=== PATIENT | male | born 2000 | race Caucasian/White ===

== ENCOUNTER 2024-03-20 02:09 | Emergency (ER) | payer BC, SELFPAY ==
[2024-03-20 02:10] VITALS: BP 156/83; PULSE 85; RESP 18; TEMP 36.9; O2SAT 98; BMI 22.6
[2024-03-20 03:19] LABS: Bacteria 0 SEEN /hpf (None Seen); Mucous, Urine 0 SEEN /hpf (<or=2+); Red Blood Cells-Urine 0 SEEN /hpf (0-5); Squamous Epithelial Cells - UA 0 SEEN /hpf (0-5); White Blood Cells 0 SEEN /hpf (0-5)
[2024-03-20 03:20] LABS: Absolute Lymphocyte Count 1.94 X10^3/uL (0.83-4.51); Absolute Neutrophil Count 5.1 X10^3/uL (2.0-7.7); Basophil# 0.06 X10^3/uL; Basophil% 0.7 % (0-1); Eosinophil# 0.22 X10^3/uL; Eosinophils% 2.7 % (0-5); Hemoglobin 14.7 g/dL (13.0-16.5); Lymphocyte # 1.94 X10^3/ul (0.83-4.51); Lymphocyte % 24.2 % (19-41); Mean Corp Hgb Conc 33.4 g/dL (32-36); Mean Corpuscular Hgb 29.3 pg (27.0-32.0); Mean Corpuscular Volume 87.8 fL (80-94); Mean Platelet Vol. 10.2 fl (6.2-12.0); Monocyte# 0.64 X10^3/uL; NRBC Flagged by Analyzer 0 % (0-5); Neutrophil % 63.5 % (47-70); Platelet Count 243 K/mm3 (150-450); RBC Distribution Width SD 41.8 fl (35.1-43.9); Red Blood Count 5.01 M/mm3 (4.6-6.2)
--- OUTSIDE RECORDS SUMMARY | 2024-03-20 03:20 | XMS RPT_ITS | CCD ---
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 congestion. No one else ill. Mid abdominal stomach upset. Not severe pain. No bloody stools. Also mentions he is cold all the time No previous anemia. No weight gain or changes in hair or skin. Has a sickle trait. He is keeping fluid down. Past medical history, appointments, medications, allergies reviewed. Previous Medical History PAST MEDICAL HISTORY Diagnosis Date Asthma, exercise induced 02/05/2015 resolved NEGATIVE HISTORY OF 02/13/10 normal color vision Previous Surgical History PAST SURGICAL HISTORY Procedure Laterality Date CIRCUMCISION Family History FAMILY HISTORY Problem Relation Age of Onset None Mother Asthma Father Heart Maternal Grandfather Stints Cervical Cancer Other maternal great grandmother Patient Allergies ALLERGIES Allergen Reactions Amoxacillin [Amoxic* Rash Developed skin rash while on amoxicillin in 2008. Penicillin skin tests were positive 02/23/12. Penicillin G Rash Penicillin skin tests positive 02/23/2012 Beta Blockers [Beta* Contraindication-[facility] Avoid use of beta blockers as patient is on allergy immunotherapy Cats Itching WATERY EYES Seasonal Allergies Itching Cats Horses Dust mites molds (July through March) trees (July, August and September) grasses (September and October) weeds (December, January and February) ragweed (December, January and February) Current Medications Current Outpatient Medications on File Prior to Visit Medication Sig polyethylene glycol 3350 (MIRALAX) 17 gram/dose powder Take by mouth as needed for constipation. Dissolve dose in 4 - 8 ounces of liquid and take as directed. No current facility-administered medications on file prior to visit. Social History Social History Tobacco Use Smoking status: Never Smokeless tobacco: Never Vaping Use Vaping Use: Never used Substance Use Topics Alcohol use: No Drug use: Never Review of Symptoms REVIEW OF SYSTEMS As above. EXAM: BP 122/79 (BP Site: Left Arm, BP Position: Sitting, BP Cuff Size: Regular Adult) Pulse 64 Temp 36.8 ?C (98.3 ?F) (Tympanic) Resp 18 Wt 78.5 kg (173 lb) BMI 22.44 kg/m? General Appearance: Well appearing, alert, in no acute distress, well-hydrated, well nourished.. Skin: Skin color, texture, turgor normal, no suspicious rashes or lesions. Head: Normocephalic, no masses, lesions, tenderness or abnormalities. Eyes: Anicteric sclera. Pupils are equally round and reactive to light. Extraocular movements are intact. . Ears: External ears normal, canals clear. Nose/Sinuses: Nares normal, septum midline, mucosa normal, no drainage or sinus tenderness. Oropharynx: Lips, mucosa, and tongue normal, teeth and gums normal, oropharynx normal. Neck: Negative findings: no adenopathy. Lungs: Lungs clear to auscultation. No wheezing, rhonchi, rales.. Heart: RRR without murmur, gallop, or rubs. No ectopy. Abdomen: Normal abdominal exam, Abdomen soft, non-tender. Bowel sounds normal. No masses, organo ASSESSMENT/PLAN: 1. Pharyngitis, unspecified etiology - ICD9: 462, ICD10: J02.9 (primary diagnosis) - Rapid Strep negative in the office today - The patient should follow up in one week if symptoms persist or worsen - Call back if drooling, increased temperature, symptoms of dehydration and/or still sick in one week - STREP A MOLECULAR (POC) 2. Gastroenteritis - ICD9: 558.9, ICD10: K52.9 - light diet. Push fluids. Call if worsens. Consider stool studies if continues. 3. Cold intolerance - ICD9: 780.99, ICD10: R68.89 - check labs in a few weeks when feeling better. - CBC + DIFF - TSH BLD - BASIC METABOLIC PNL Janell Bassett MD Medical Decision Making: Problems: Moderate: New problem with uncertain prognosis Data: Unique test(s) ordered: 3+ Medical Decision Making Level: 4 - Moderate Referring Provider: SELF [[id number]] Allergies As of Date: 08/26/2023 Noted Allergy Reaction AMOXACILLIN (AMOXICILLIN) 03/16/2009 2 - Rash Comments: Developed skin rash while on am (more content not included)... Normal [facility] STREP A MOLECULAR (POC)on Procedural Control Valid [facility] Strep A (POCT) Negative Negative [facility] Vital Signs Date Time Vital Sign Value Performing Clinician Faci lity 01-12-2024 13:41-0400 Body mass index (BMI) [Ratio] 21.92 kg/m2 Ashley Jacobson APRN.ZAID Work Phone: [facility] 01-12-2024 13:41-0400 Body weight 76.66 kg Ashley Jacobson APRN.HAND PATTERN MARKER Work Phone: [facility] 01-12-2024 13:41-0400 Diastolic blood pressure 82 mm[Hg] Ashley Jacobson APRN.HAND PATTERN MARKER Work Phone: [facility] 01-12-2024 13:41-0400 Heart rate 69 /min Ashley Jacobson APRN.HAND PATTERN MARKER Work Phone: [facility] 01-12-2024 13:41-0400 Respiratory rate 16 /min Ashley Jacobson APRN.HAND PATTERN MARKER Work Phone: [facility] 01-12-2024 13:41-0400 SaO2% (BldA) [Mass fraction] 98 % Ashley Jacobson APRN.HAND PATTERN MARKER Work Phone: [facility] 01-12-2024 13:41-0400 Systolic blood pressure 126 mm[Hg] Ashley Jacobson APRN.HAND PATTERN MARKER Work Phone: [facility] 08-26-2023 13:28-0400 Body temperature 98.29 [degF] Janell Bassett MD Work Phone: [facility] 08-26-2023 13:28-0400 Body weight 78.47 kg Janell Bassett MD Work Phone: [facility] 08-26-2023 13:28-0400 Diastolic blood pressure 79 mm[Hg] Janell Bassett MD Work Phone: [facility] 08-26-2023 13:28-0400 Heart rate 64 /min Janell Bassett MD Work Phone: [facility] 08-26-2023 13:28-0400 Respiratory rate 18 /min Janell Bassett MD Work Phone: [facility] 08-26-2023 13:28-0400 Systolic blood pressure 122 mm[Hg] Janell Bassett MD Work Phone: [facility] 03-21-2022 17:46-0400 Body temperature 101.1 [degF] Rhett Paul TELEGRAPH INSPECTOR.HAND PATTERN MARKER Work Phone: [facility] 03-21-2022 17:46-0400 Body weight 80.65 kg Rhettkristine Miller TELEGRAPH INSPECTOR.HAND PATTERN MARKER Work Phone: [facility] 03-21-2022 17:46-0400 Diastolic blood pressure 80 mm[Hg] Rhett Pendlebury TELEGRAPH INSPECTOR.HAND PATTERN MARKER Work Phone: [facility] 03-21-2022 17:46-0400 Heart rate 109 /min Rhett Penddamion TELEGRAPH INSPECTOR.HAND PATTERN MARKER Work Phone: [facility] 03-21-2022 17:46-0400 Respiratory rate 16 /min Rhett Pendleraquel TELEGRAPH INSPECTOR.HAND PATTERN MARKER Work Phone: [facility] 03-21-2022 17:46-0400 SaO2% (BldA) [Mass fraction] 96 % Rhett Pendleraquel TELEGRAPH INSPECTOR.HAND PATTERN MARKER Work Phone: [facility] 03-21-2022 17:46-0400 Systolic blood pressure 138 mm[Hg] Rhett Pendleraquel TELEGRAPH INSPECTOR.HAND PATTERN MARKER Work Phone: [facility] 03-17-2022 10:46-0400 Body temperature 98.1 [degF] Keli Pino PA-C Work Phone: [facility] 03-17-2022 10:46-0400 Body weight 80.79 kg Keli Pino PA-C Work Phone: [facility] 03-17-2022 10:46-0400 Heart rate 76 /min Keli Pino PA-C Work Phone: [facility] 03-17-2022 10:46-0400 Respiratory rate 16 /min Keli Pino PA-C Work Phone: [facility] 12-20-2021 19:36-0400 Body temperature 97.11 [degF] Ros García TELEGRAPH INSPECTOR.HAND PATTERN MARKER Work Phone: [facility] 12-20-2021 19:36-0400 Body weight 80.2 kg Ros García TELEGRAPH INSPECTOR.HAND PATTERN MARKER Work Phone: [facility] 12-20-2021 19:36-0400 Diastolic blood pressure 86 mm[Hg] Ros García TELEGRAPH INSPECTOR.HAND PATTERN MARKER Work Phone: [facility] 12-20-2021 19:36-0400 Heart rate 72 /min Ros García TELEGRAPH INSPECTOR.HAND PATTERN MARKER Work Phone: [facility] 12-20-2021 19:36-0400 Respiratory rate 20 /min Ros García TELEGRAPH INSPECTOR.HAND PATTERN MARKER Work Phone: [facility] 12-20-2021 19:36-0400 SaO2% (BldA) [Mass fraction] 98 % Ros García TELEGRAPH INSPECTOR.HAND PATTERN MARKER Work Phone: [facility] 12-20-2021 19:36-0400 Systolic blood pressure 130 mm[Hg] Ros García TELEGRAPH INSPECTOR.HAND PATTERN MARKER Work Phone: [facility] Encounters Encounter Date Encounter Type Care Provider Facility Start: 03-05-2024 End: 03-05-2024 ambulatory JANELL BASSETT Facility:[facility] Start: 03-05-2024 End: 03-05-2024 Patient encounter procedure Immunization Clinic Nurse Nusrat Work Phone: [facility] Start: 01-12-2024 End: 01-12-2024 Office outpatient visit 15 minutes Ashley Jacobson APRN.HAND PATTERN MARKER Work Phone: [facility] Comment on above: Eczema, unspecified type (Primary Dx); Encounter for immunization Start: 01-12-2024 End: 01-12-2024 ambulatory ASHLEYSugey JACOBSON Facility:[facility] Start: 09-24-2023 End: 09-24-2023 ambulatory JANELL Isma JUICE Facility:[facility] Start: 08-26-2023 End: 08-26-2023 ambulatory [facility] Facility:[facility] Start: 08-26-2023 End: 08-26-2023 Patient encounter procedure Janell Bassett MD Work Phone: [facility] [place] Comment on above: Pharyngitis, unspeci fied etiology (Primary Dx); Gastroenteritis; Cold intolerance Start: 03-07-2023 End: 03-07-2023 ambulatory Immunization Clinic Nurse Nusrat Work Phone: [facility] Start: 08-01-2022 End: 08-01-2022 Nursing evaluation of patient and report Mi Nurse Work Phone: [facility] Comment on above: Need for vaccination (Primary Dx) Start: 05-30-2022 ambulatory [facility] Provider Pacheco Cerda Comment on above: Establish with [facility] physician. Start: 05-30-2022 E-mail encounter fro m caregiver [facility] Provider ODESSA CASANOVA Start: 05-22-2022 ambulatory Rodrigo herbert MD Work Phone: [facility] Comment on above: Adult Dr Start: 05-22-2022 Physical examination Rodrigo Rollins MD Work Phone: [facility] [place] Start: 03-22-2022 Telephone encounter Melba David APRN.HAND PATTERN MARKER Work Phone: [facility] Comment on above: Results Start: 03-21-2022 End: 03-21-2022 Patient encounter procedure Rhett Miller TELEGRAPH INSPECTOR.HAND PATTERN MARKER Work Phone: [facility] Comment on above: Suspected COVID-19 v irus infection (Primary Dx) Start: 03-17-2022 End: 03-17-2022 Patient encounter procedure Keli Pino PA-C Work Phone: [facility] Comment on above: Viral gastroenteriti s (Primary Dx) Start: 12-20-2021 End: 12-20-2021 Patient encounter procedure Ros García TELEGRAPH INSPECTOR.HAND PATTERN MARKER Work Phone: [facility] Comment on above: Muscle strain of lef t upper back, initial encounter (Primary Dx) Procedures Date Procedure Procedure Detail Performing Clinician Start: 03-05-2024 PFIZER-BIONTECH COVI D-19 VACCINE AGE 12+ YR (COMIRNATY) Windy Fall MD Work Phone: Start: 08-26-2023 STREP A MOLECULAR (POC) Janell Bassett MD Work Phone: Start: 03-07-2023 INFLUENZA VACCINE, A GE 6 MO - 64 YR, QUADRIVALENT (AFLURIA, FLULAVAL, FLUZONE) Adonis Wright MD Work Phone: Start: 08-01-2022 PFIZER-BIONTECH COVI D-19 BIVALENT BOOSTER VACCINE, AGE 12+ YR M Vaughn Christianson PA-C Work Phone: Start: 03-12-2020 Adult depression scr eening assessment Ros García APRN.HAND PATTERN MARKER Work Phone: Plan of Treatment Date Care Activity Detail Author Start: 01-11-2034 Urine microalbumin profile DTaP,Tdap,Td Vaccine (8 - Td or Tdap) [facility] Start: 01-11-2025 Anxiety Screening Anxiety Screening [facility] Comment on above: Postponed from 02/13 (Declined at this time) Start: 02-01-2024 Urine microalbumin profile [facility] Start: 01-24-2024 Influenza vaccination Influenza Vacc ine (#1) [facility] Start: 01-12-2024 Depression Screening Depression Scre ening [facility] Comment on above: Postponed from 02/13 (Declined at this time) Start: 08-26-2023 End: 11-25-2023 Basic metabolic 2000 panel - Serum or Plasma BASIC METABOLIC PNL Lab Routine Cold intolerance Expected: 08/26/2023, Expires: 11/25/2023 [facility] Work Phone: Comment on above: Expected: 08/26/2023 , Expires: 11/25/2023 Start: 08-26-2023 End: 11-25-2023 CBC W Auto Differential panel - Blood CBC + DIFF Lab Routine Cold intolerance Expected: 08/26/2023, Expires: 11/25/2023 [facility] Work Phone: Comment on above: Expected: 08/26/2023 , Expires: 11/25/2023 Start: 08-26-2023 End: 11-25-2023 Thyrotropin [Units/volume] in Serum or Plasma TSH BLD Lab Routine Cold intolerance Expected: 08/26/2023, Expires: 11/25/2023 [facility] Work Phone: Comment on above: Expected: 08/26/2023 , Expires: 11/25/2023 Start: 05-25-2023 Behavioral Health Screening Behavioral Health Screening [facility] Start: 01-23-2023 Covid-19 Vaccine () Covid-19 Vaccine () [facility] Start: 05-25-2022 DEPRESSION ASSESSMENT DEPRESSION ASS ESSMENT [facility] Start: 03-21-2022 End: 04-04-2022 SARS-CoV-2 (COVID-19) RNA [Presence] in Respiratory specimen by SOHAN with probe detection 2019 CORONAVIRUS Microbiology Routine Suspected COVID-19 virus infection Expected: 03/21/2022, Expires: 04/04/2022 [facility] Work Phone: Comment on above: Expected: 03/21/2022 , Expires: 04/04/2022 Start: 01-23-2022 Influenza vaccination INFLUENZA (#1) [facility] Start: 07-27-2021 COVID-19 VACCINE (4 - Booster for Moderna series) COVID-19 VACCINE (4 - Booster for Moderna series) [facility] Start: 05-25-2021 DEPRESSION ASSESSMENT DEPRESSION ASS ESSMENT [facility] Start: 03-12-2021 Adult depression screening assessment DEPRESSION SCREENING [facility] Start: 02-14-2020 Depression Screening Depression Scre ening [facility] Start: 02-14-2020 HEPATITIS C SCREENING HEPATITIS C [facility] Start: 02-14-2020 Hepatitis C screening Hepatitis C [facility] Start: 02-14-2020 HIV SCREENING HIV SCREENING [facility] Start: 02-14-2020 HIV screening HIV Screening [facility] Start: 2018 Meningococcal B Vacc ine: Consider Based On Risk (1 of 2 - Patient Seeks Protection) Meningococcal B Vaccine: Consider Based On Risk (1 of 2 - Patient Seeks Protection) [facility] Start: 02-14-2016 PEDS TO ADULT TRANSI TION ANNUAL ASSESSMENT PEDS TO ADULT TRANSITION ANNUAL ASSESSMENT [facility] Start: 2014 PEDS TO ADULT TRANSI TION INITIAL DISCUSSION PEDS TO ADULT TRANSITION INITIAL DISCUSSION [facility] Start: 02-14-2012 MENINGOCOCCAL B: Consider based on risk (1 of 2 - Risk Bexsero 2-dose series) MENINGOCOCCAL B: Consider based on risk (1 of 2 - Risk Bexsero 2-dose series) [facility] Immunizations Immunization Date Immunization Notes Care Provider Adela villafuerte 03-05-2024 COVID-19 vaccine, ag e 12+ yr (PFIZER-BIONTECH [facility]) Immunization Nusrat Work Phone: [facility] 03-05-2024 influenza, seasonal, injectable Immunization Nusrat Work Phone: [facility] 01-12-2024 tetanus toxoid, redu edwina diphtheria toxoid, and acellular pertussis vaccine, adsorbed Ashley Jacobson TELEGRAPH INSPECTOR.HAND PATTERN MARKER Work Phone: [facility] 03-07-2023 influenza, injectabl e, quadrivalent, contains preservative Immunization N[facility] Work Phone: [facility] 03-07-2023 influenza virus vaccine, unspecified formulation Ashley Jacobson APRN.HAND PATTERN MARKER Work Phone: [facility] 08-01-2022 COVID-19 booster vaccine, age 12+ yr, bivalent (PFIZER-BIONTMiCursada) [facility] Work Phone: [facility] Work Phone: 02-22-2022 influenza, injectabl e, quadrivalent, contains preservative Keli Pino PA-C Work Phone: [facility] 02-23-2021 influenza, injectabl e, quadrivalent, contains preservative Ros García TELEGRAPH INSPECTOR.HAND PATTERN MARKER Work Phone: [facility] Work Phone: 03-12-2020 influenza, injectabl e, quadrivalent, contains preservative Ros García TELEGRAPH INSPECTOR.HAND PATTERN MARKER Work Phone: [facility] 03-11-2019 influenza, injectabl e, quadrivalent, preservative free Ros García TELEGRAPH INSPECTOR.HAND PATTERN MARKER Work Phone: [facility] 02-16-2018 influenza, injectabl e, quadrivalent, contains preservative Ros García TELEGRAPH INSPECTOR.[facility] Work Phone: [facility] 02-16-2018 meningococcal B, unspecified formulation Immunization Nusrat Work Phone: [facility] Work Phone: 02-16-2018 meningococcal polysaccharide (groups A, C, Y and W-135) diphtheria toxoid conjugate vaccine (MCV4P) Ros García TELEGRAPH INSPECTOR.HAND PATTERN MARKER Work Phone: [facility] 02-25-2017 influenza, injectabl e, quadrivalent, preservative free Ros García TELEGRAPH INSPECTOR.HAND PATTERN MARKER Work Phone: [facility] Work Phone: 02-25-2016 influenza, injectabl e, quadrivalent, preservative free Ros García TELEGRAPH INSPECTOR.HAND PATTERN MARKER Work Phone: [facility] Work Phone: 02-24-2015 influenza, injectabl e, quadrivalent, preservative free Ros García TELEGRAPH INSPECTOR.HAND PATTERN MARKER Work Phone: [facility] 08-03-2014 human papilloma viru s vaccine, quadrivalent Ros García TELEGRAPH INSPECTOR.HAND PATTERN MARKER Work Phone: [facility] 03-31-2014 human papilloma viru s vaccine, quadrivalent Ros García TELEGRAPH INSPECTOR.[facility] Work Phone: [facility] Work Phone: 03-02-2014 influenza, injectabl e, quadrivalent, preservative free Ros García TELEGRAPH INSPECTOR.[facility] Work Phone: [facility] Work Phone: 01-31-2014 human papilloma viru s vaccine, quadrivalent Ros García TELEGRAPH INSPECTOR.[facility] Work Phone: [facility] 01-31-2014 meningococcal B, unspecified formulation Immunization Nusrat Work Phone: [facility] Work Phone: 01-31-2014 meningococcal polysaccharide (groups A, C, Y and W-135) diphtheria toxoid conjugate vaccine (MCV4P) Ros García TELEGRAPH INSPECTOR.[facility] Work Phone: [facility] 01-31-2014 tetanus toxoid, redu edwina diphtheria toxoid, and acellular pertussis vaccine, adsorbed Ros García TELEGRAPH INSPECTOR.[facility] Work Phone: [facility] 03-05-2013 influenza virus vaccine, live, attenuated, for intranasal use Ros García TELEGRAPH INSPECTOR.HAND PATTERN MARKER Work Phone: [facility] Work Phone: 02-21-2012 influenza virus vaccine, live, attenuated, for intranasal use Ros García TELEGRAPH INSPECTOR.[facility] Work Phone: [facility] Work Phone: 02-25-2011 influenza virus vaccine, live, attenuated, for intranasal use Ros García TELEGRAPH INSPECTOR.[facility] Work Phone: [facility] 2010 influenza virus vaccine, live, attenuated, for intranasal use Ros García TELEGRAPH INSPECTOR.[facility] Work Phone: [facility] 02-17-2009 influenza virus vaccine, live, attenuated, for intranasal use Ros García TELEGRAPH INSPECTOR.[facility] Work Phone: [facility] Work Phone: 03-04-2008 influenza virus vaccine, live, attenuated, for intranasal use Ros García TELEGRAPH INSPECTOR.[facility] [facility] Work Phone: [facility] Work Phone: 12-29-2007 hepatitis A vaccine, unspecified formulation Ros García TELEGRAPH INSPECTOR.[facility] Work Phone: [facility] Work Phone: 12-29-2007 varicella virus vaccine Mechelle ica García TELEGRAPH INSPECTOR.[facility] Work Phone: [facility] Work Phone: 04-07-2007 influenza virus vaccine, live, attenuated, for intranasal use Ros García TELEGRAPH INSPECTOR.[facility] Work Phone: [facility] Work Phone: 02-15-2007 diphtheria, tetanus toxoids and acellular pertussis vaccine Ros García TELEGRAPH INSPECTOR.[facility] Work Phone: [facility] Work Phone: 02-15-2007 hepatitis A vaccine, unspecified formulation Ros García TELEGRAPH INSPECTOR.[facility] Work Phone: [facility] Work Phone: 02-15-2007 measles, mumps and rubella virus vaccine Ros García TELEGRAPH INSPECTOR.[facility] Work Phone: [facility] Work Phone: 02-15-2007 poliovirus vaccine, inactivated Ros García TELEGRAPH INSPECTOR.[facility] Work Phone: [facility] Work Phone: 03-30-2006 influenza virus vaccine, unspecified formulation Ros García TELEGRAPH INSPECTOR.[facility] Work Phone: [facility] Work Phone: 03-13-2005 influenza virus vaccine, unspecified formulation Ros García TELEGRAPH INSPECTOR.[facility] Work Phone: [facility] Work Phone: 04-23-2004 influenza virus vaccine, unspecified formulation Ros García TELEGRAPH INSPECTOR.[facility] Work Phone: [facility] Work Phone: 05-12-2003 diphtheria, tetanus toxoids and acellular pertussis vaccine Ros García TELEGRAPH INSPECTOR.[facility] Work Phone: [facility] Work Phone: 05-12-2003 haemophilus influenz ae type b vaccine, HbOC conjugate Ros García TELEGRAPH INSPECTOR.[facility] Work Phone: [facility] Work Phone: 05-12-2003 pneumococcal conjuga te vaccine, 7 valent Ros García TELEGRAPH INSPECTOR.[facility] Work Phone: [facility] Work Phone: 05-04-2003 influenza virus vaccine, unspecified formulation Ros García TELEGRAPH INSPECTOR.[facility] Work Phone: [facility] Work Phone: 02-17-2003 hepatitis B vaccine, pediatric or pediatric/adolescent dosage Ros García TELEGRAPH INSPECTOR.[facility] Work Phone: [facility] Work Phone: 02-17-2003 measles, mumps and rubella virus vaccine Ros García TELEGRAPH INSPECTOR.[facility] Work Phone: [facility] Work Phone: 02-17-2003 varicella virus vaccine Mechelle ica García TELEGRAPH INSPECTOR.[facility] Work Phone: [facility] Work Phone: 2002 diphtheria, tetanus toxoids and acellular pertussis vaccine Ros García TELEGRAPH INSPECTOR.[facility] Work Phone: [facility] Work Phone: 2002 haemophilus influenz ae type b vaccine, HbOC conjugate Ros García TELEGRAPH INSPECTOR.HAND PATTERN MARKER Work Phone: [facility] Work Phone: 2002 pneumococcal conjuga te vaccine, 7 valent Ros García TELEGRAPH INSPECTOR.[facility] Work Phone: [facility] Work Phone: 2002 poliovirus vaccine, inactivated Ros García TELEGRAPH INSPECTOR.[facility] Work Phone: [facility] Work Phone: 2002 diphtheria, tetanus toxoids and acellular pertussis vaccine Ros García TELEGRAPH INSPECTOR.[facility] Work Phone: [facility] Work Phone: 2002 haemophilus influenz ae type b vaccine, HbOC conjugate Ros García TELEGRAPH INSPECTOR.[facility] Work Phone: [facility] Work Phone: 2002 pneumococcal conjuga te vaccine, 7 valent Ros García TELEGRAPH INSPECTOR.[facility] Work Phone: [facility] Work Phone: 2002 poliovirus vaccine, inactivated Ros García TELEGRAPH INSPECTOR.[facility] Work Phone: [facility] Work Phone: 2002 diphtheria, tetanus toxoids and acellular pertussis vaccine Ros García TELEGRAPH INSPECTOR.[facility] Work Phone: [facility] Work Phone: 2002 haemophilus influenz ae type b vaccine, HbOC conjugate Ros García TELEGRAPH INSPECTOR.[facility] Work Phone: [facility] Work Phone: 2002 pneumococcal conjuga te vaccine, 7 valent Ros García TELEGRAPH INSPECTOR.[facility] Work Phone: [facility] Work Phone: 2002 poliovirus vaccine, inactivated Ros García TELEGRAPH INSPECTOR.[facility] Work Phone: [facility] Work Phone: 2002 hepatitis B vaccine, pediatric or pediatric/adolescent dosage Ros García TELEGRAPH INSPECTOR.HAND PATTERN MARKER Work Phone: [facility] Work Phone: 2002 hepatitis B vaccine, pediatric or pediatric/adolescent dosage Ros García TELEGRAPH INSPECTOR.HAND PATTERN MARKER Work Phone: [facility] Work Phone: Payers Date Payer Category Payer Unknown [id number] 2018 Unknown MMO MMO [employer] [id number] 2018-Present [phone] [address] [place] [address] [facility] [id number] 2018 Unknown [id number] Social History Date Type Detail Facility Start: 03-17-2022 Tobacco smoking status AZIS Never smoked tobacco [facility] Start: 12-20-2021 End: 01-12-2024 Alcohol intake Current non-drinker of alcohol (finding) [facility] Start: 2002 Sex Assigned At Male [facility] Start: 03-17-2022 Tobacco use and exposure Smokeless tobacco non-user [facility] Work Phone: Start: 03-07-2022 End: 03-21-2022 Exposure to SARS-CoV-2 (event) Not sure [facility] Work Phone: Start: 08-04-2022 End: 02-20-2023 History of Social function [facility] Start: 08-04-2022 End: 02-20-2023 Social connection and isolation [facility] Do you belong to any clubs or organizations such as rastafarian groups, unions, fraternal or athletic groups, or school groups? No [facility] Attends Club or Organization Meetings Not on file [facility] Are you now , , , , never or living with a partner? Never [facility] How often to you hav e a drink containing alcohol? Never [facility] (I/We) worried wheth er (my/our) food would run out before (I/we) got money to buy more. Never true [facility] Start: 01-18-2019 Gender identity Identifies as male gender (finding) [facility] Start: 01-18-2019 Sexual orientation Heterosexual (finding) [facility] Clinical Notes 04-21-2017 to 01-12-2024 Patient InstructionsAshley Jacobson APRN.CNP - 01/12/2024 1:50 PM Janell Blanchard MD - 08/26/2023 1:27 PM EDHernan Kaba LPN - 08/01/2022 12:40 PM ESTPatient InstructionsPatient Instructions Note Date & Type Note Facility 01-12-2024 Instructions Ashley Jacobson APRN.CNP - 01/12/2024 2:11 PM EDT Try the steroid on the wrist area. If you need us to send in a new script for the steroid ointment, let us know. Let us know if you decide you want the meningococcal B vaccine. (You had the required dosing). Let us know if you want the HIV/hep C screenings. documented in this encounter [facility] 01-12-2024 Note HNO ID: [id number] Author: ASHLEY JACOBSON APRN.ZAID Service: ? Author Type: Nurse Practitioner Type: Progress Notes Filed: 01/12/2024 17:32 Note Text: This is a 23 year old male who presents today with: Patient presents with: Follow Up HISTORY OF PRESENT ILLNESS: Jd Obregon is a 23 year old male. Patient presents with: Follow Up Pt presents today for health maintenance. Due for tdap. He also has some irritated skin on the palmar aspect of the right wrist. Thinks from some oil at work. Hx of eczema. Has a steroid cream at home. PAST MEDICAL HISTORY: PAST MEDICAL HISTORY 02/05/2015: Asthma, exercise induced Comment: resolved 02/13/10: NEGATIVE HISTORY OF Comment: normal color vision PAST SURGICAL HISTORY No date: CIRCUMCISION ALLERGIES Amoxacillin [Amoxicillin], Penicillin G, Beta Blockers [Beta-Blockers (Beta-Adrenergic Blocking Agts)], Cats, and Seasonal Allergies MEDICATIONS Current Outpatient Medications Medication Sig polyethylene glycol 3350 (MIRALAX) 17 gram/dose powder Take by mouth as needed for constipation. Dissolve dose in 4 - 8 ounces of liquid and take as directed. No current facility-administered medications for this visit. FAMILY HISTORY Problem Relation Age of Onset None Mother Asthma Father Heart Maternal Grandfather Stints Cervical Cancer Other maternal great grandmother Social History Tobacco Use Smoking status: Never Smokeless tobacco: Never Vaping Use Vaping status: Never Used Substance Use Topics Alcohol use: No Drug use: Never EXAM: BP 126/82 Pulse 69 Resp 16 Wt 76.7 kg (169 lb) SpO2 98% BMI 21.92 kg/m? PHYSICAL EXAM: General Appearance: Well appearing, alert, in no acute distress, well-hydrated, well nourished.. Skin: Skin color, texture, turgor normal, dry,scaly patch of skin on the palmar aspect of the right wrist. Head: Normocephalic, no masses, lesions, tenderness or abnormalities. Eyes: Anicteric sclera. Extraocular movements are intact. . Neurologic: Gait normal. ASSESSMENT/PLAN: 1. Eczema, unspecified type - ICD9: 692.9, ICD10: L30.9 (primary diagnosis) - discussed skin care of rash - follow up if symptoms persist or worsen. - Declines script -- he thinks that he has a topical steroid at home. He is aware to call if he does not and we can send into the pharmacy. 2. Encounter for immunization - ICD9: V03.89, ICD10: Z23 - TDAP VACCINE, AGE 7+ YR (ADACEL, BOOSTRIX) Discussed other health maintenance (men B, hep c and hiv screening). He would like to ensure coverage prior to proceeding. Discussed treatment plan and patient voices understanding. Patient's questions answered appropriately. Medications and potential side effects were discussed and patient voices understanding. Return to the office as scheduled or as needed for worsening/no improvement. Ashley Jacobson APRN.[facility] 01-12-2024 History of Present illness Narrative This is a 23 year old male who presents today with: Patient presents with: Follow Up HISTORY OF PRESENT ILLNESS: Jd Obregon is a 23 year old male. Patient presents with: Follow Up Pt presents today for health maintenance. Due for tdap. He also has some irritated skin on the palmar aspect of the right wrist. Thinks from some oil at work. Hx of eczema. Has a steroid cream at home. PAST MEDICAL HISTORY: PAST MEDICAL HISTORY 02/05/2015: Asthma, exercise induced Comment: resolved 02/13/10: NEGATIVE HISTORY OF Comment: normal color vision PAST SURGICAL HISTORY No date: CIRCUMCISION ALLERGIES Amoxacillin [Amoxicillin], Penicillin G, Beta Blockers [Beta-Blockers (Beta-Adrenergic Blocking Agts)], Cats, and Seasonal Allergies MEDICATIONS Current Outpatient Medications Medication Sig polyethylene glycol 3350 (MIRALAX) 17 gram/dose powder Take by mouth as needed for constipation. Dissolve dose in 4 - 8 ounces of liquid and take as directed. No current facility-administered medications for this visit. FAMILY HISTORY Problem Relation Age of Onset None Mother Asthma Father Heart Maternal Grandfather Stints Cervical Cancer Other maternal great grandmother Social History Tobacco Use Smoking status: Never Smokeless tobacco: Never Vaping Use Vaping status: Never Used Substance Use Topics Alcohol use: No Drug use: Never EXAM: BP 126/82 Pulse 69 Resp 16 Wt 76.7 kg (169 lb) SpO2 98% BMI 21.92 kg/m PHYSICAL EXAM: General Appearance: Well appearing, alert, in no acute distress, well-hydrated, well nourished.. Skin: Skin color, texture, turgor normal, dry,scaly patch of skin on the palmar aspect of the right wrist. Head: Normocephalic, no masses, lesions, tenderness or abnormalities. Eyes: Anicteric sclera. Extraocular movements are intact. . Neurologic: Gait normal. ASSESSMENT/PLAN: 1. Eczema, unspecified type - ICD9: 692.9, ICD10: L30.9 (primary diagnosis) - discussed skin care of rash - follow up if symptoms persist or worsen. - Declines script -- he thinks that he has a topical steroid at home. He is aware to call if he does not and we can send into the pharmacy. 2. Encounter for immunization - ICD9: V03.89, ICD10: Z23 - TDAP VACCINE, AGE 7+ YR (ADACEL, BOOSTRIX) Discussed other health maintenance (men B, hep c and hiv screening). He would like to ensure coverage prior to proceeding. Discussed treatment plan and patient voices understanding. Patient's questions answered appropriately. Medications and potential side effects were discussed and patient voices understanding. Return to the office as scheduled or as needed for worsening/no improvement. Ashley Jacobson APRN.HAND PATTERN MARKER documented in this encounter [facility] 08-26-2023 Note HNO ID: [id number] Author: JANELL BASSETT MD Service: ? Author Type: Physician Type: Progress Notes Filed: 08/26/2023 16:55 Note Text: Chief Complaint Patient presents with: Pain, Abdominal HPI Jd Obregon is a 23 year old male who presents here today for patient was at family gathering on Thursday and woke up Thursday morning around 4 am with upset stomach. No fever; No vomiting; did have nausea the first day but that has gotten better. Gets loose stools whenever he eats. No fever. No issues urinating. Had mild headache last pm. Some sore throat. Was worse yesterday. No cough or congestion. No one else ill. Mid abdominal stomach upset. Not severe pain. No bloody stools. Also mentions he is cold all the time No previous anemia. No weight gain or changes in hair or skin. Has a sickle trait. He is keeping fluid down. Past medical history, appointments, medications, allergies reviewed. Previous Medical History PAST MEDICAL HISTORY Diagnosis Date Asthma, exercise induced 02/05/2015 resolved NEGATIVE HISTORY OF 02/13/10 normal color vision Previous Surgical History PAST SURGICAL HISTORY Procedure Laterality Date CIRCUMCISION Family History FAMILY HISTORY Problem Relation Age of Onset None Mother Asthma Father Heart Maternal Grandfather Stints Cervical Cancer Other maternal great grandmother Patient Allergies ALLERGIES Allergen Reactions Amoxacillin [Amoxic* Rash Developed skin rash while on amoxicillin in 2008. Penicillin skin tests were positive 02/23/12. Penicillin G Rash Penicillin skin tests positive 02/23/2012 Beta Blockers [Beta* Contraindication-Medical Surgical Avoid use of beta blockers as patient is on allergy immunotherapy Cats Itching WATERY EYES Seasonal Allergies Itching Cats Horses Dust mites molds (July through March) trees (July, August and September) grasses (September and October) weeds (December, January and February) ragweed (December, January and February) Current Medications Current Outpatient Medications on File Prior to Visit Medication Sig polyethylene glycol 3350 (MIRALAX) 17 gram/dose powder Take by mouth as needed for constipation. Dissolve dose in 4 - 8 ounces of liquid and take as directed. No current facility-administered medications on file prior to visit. Social History Social History Tobacco Use Smoking status: Never Smokeless tobacco: Never Vaping Use Vaping Use: Never used Substance Use Topics Alcohol use: No Drug use: Never Review of Symptoms REVIEW OF SYSTEMS As above. EXAM: BP 122/79 (BP Site: Left Arm, BP Position: Sitting, BP Cuff Size: Regular Adult) Pulse 64 Temp 36.8 ?C (98.3 ?F) (Tympanic) Resp 18 Wt 78.5 kg (173 lb) BMI 22.44 kg/m? General Appearance: Well appearing, alert, in no acute distress, well-hydrated, well nourished.. Skin: Skin color, texture, turgor normal, no suspicious rashes or lesions. Head: Normocephalic, no masses, lesions, tenderness or abnormalities. Eyes: Anicteric sclera. Pupils are equally round and reactive to light. Extraocular movements are intact. . Ears: External ears normal, canals clear. Nose/Sinuses: Nares normal, septum midline, mucosa normal, no drainage or sinus tenderness. Oropharynx: Lips, mucosa, and tongue normal, teeth and gums normal, oropharynx normal. Neck: Negative findings: no adenopathy. Lungs: Lungs clear to auscultation. No wheezing, rhonchi, rales.. Heart: RRR without murmur, gallop, or rubs. No ectopy. Abdomen: Normal abdominal exam, Abdomen soft, non-tender. Bowel sounds normal. No masses, organo ASSESSMENT/PLAN: 1. Pharyngitis, unspecified etiology - ICD9: 462, ICD10: J02.9 (primary diagnosis) - Rapid Strep negative in the office today - The patient should follow up in one week if symptoms persist or worsen - Call back if drooling, increased temperature, symptoms of dehydration and/or still sick in one week - STREP A MOLECULAR (POC) 2. Gastroenteritis - ICD9: 558.9, ICD10: K52.9 - light diet. Push fluids. Call if worsens. Consider stool studies if continues. 3. Cold intolerance - ICD9: 780.99, ICD10: R68.89 - check labs in a few weeks when feeling better. - CBC + DIFF - TSH BLD - BASIC METABOLIC PNL Janell Bassett MD Medical Decision Making: Problems: Moderate: New problem with uncertain prognosis Data: Unique test(s) ordered: 3+ Medical Decision Making Level: 4 - Moderate [facility] 08-26-2023 History of Present illness Narrative Chief Complaint Patient presents with: Pain, Abdominal HPI Jd Obregon is a 23 year old male who presents here today for patient was at family gathering on Thursday and woke up Thursday morning around 4 am with upset stomach. No fever; No vomiting; did have nausea the first day but that has gotten better. Gets loose stools whenever he eats. No fever. No issues urinating. Had mild headache last pm. Some sore throat. Was worse yesterday. No cough or congestion. No one else ill. Mid abdominal stomach upset. Not severe pain. No bloody stools. Also mentions he is cold all the time No previous anemia. No weight gain or changes in hair or skin. Has a sickle trait. He is keeping fluid down. Past medical history, appointments, medications, allergies reviewed. Previous Medical History PAST MEDICAL HISTORY Diagnosis Date Asthma, exercise induced 02/05/2015 resolved NEGATIVE HISTORY OF 02/13/10 normal color vision Previous Surgical History PAST SURGICAL HISTORY Procedure Laterality Date CIRCUMCISION Family History FAMILY HISTORY Problem Relation Age of Onset None Mother Asthma Father Heart Maternal Grandfather Stints Cervical Cancer Other maternal great grandmother Patient Allergies ALLERGIES Allergen Reactions Amoxacillin [Amoxic* Rash Developed skin rash while on amoxicillin in 2008. Penicillin skin tests were positive 02/23/12. Penicillin G Rash Penicillin skin tests positive 02/23/2012 Beta Blockers [Beta* Contraindication-Medical Surgical Avoid use of beta blockers as patient is on allergy immunotherapy Cats Itching WATERY EYES Seasonal Allergies Itching Cats Horses Dust mites molds (July through March) trees (July, August and September) grasses (September and October) weeds (December, January and February) ragweed (December, January and February) Current Medications Current Outpatient Medications on File Prior to Visit Medication Sig polyethylene glycol 3350 (MIRALAX) 17 gram/dose powder Take by mouth as needed for constipation. Dissolve dose in 4 - 8 ounces of liquid and take as directed. No current facility-administered medications on file prior to visit. Social History Social History Tobacco Use Smoking status: Never Smokeless tobacco: Never Vaping Use Vaping Use: Never used Substance Use Topics Alcohol use: No Drug use: Never Review of Symptoms REVIEW OF SYSTEMS As above. EXAM: BP 122/79 (BP Site: Left Arm, BP Position: Sitting, BP Cuff Size: Regular Adult) Pulse 64 Temp 36.8 C (98.3 F) (Tympanic) Resp 18 Wt 78.5 kg (173 lb) BMI 22.44 kg/m General Appearance: Well appearing, alert, in no acute distress, well-hydrated, well nourished.. Skin: Skin color, texture, turgor normal, no suspicious rashes or lesions. Head: Normocephalic, no masses, lesions, tenderness or abnormalities. Eyes: Anicteric sclera. Pupils are equally round and reactive to light. Extraocular movements are intact. . Ears: External ears normal, canals clear. Nose/Sinuses: Nares normal, septum midline, mucosa normal, no drainage or sinus tenderness. Oropharynx: Lips, mucosa, and tongue normal, teeth and gums normal, oropharynx normal. Neck: Negative findings: no adenopathy. Lungs: Lungs clear to auscultation. No wheezing, rhonchi, rales.. Heart: RRR without murmur, gallop, or rubs. No ectopy. Abdomen: Normal abdominal exam, Abdomen soft, non-tender. Bowel sounds normal. No masses, organo ASSESSMENT/PLAN: 1. Pharyngitis, unspecified etiology - ICD9: 462, ICD10: J02.9 (primary diagnosis) - Rapid Strep negative in the office today - The patient should follow up in one week if symptoms persist or worsen - Call back if drooling, increased temperature, symptoms of dehydration and/or still sick in one week - STREP A MOLECULAR (POC) 2. Gastroenteritis - ICD9: 558.9, ICD10: K52.9 - light diet. Push fluids. Call if worsens. Consider stool studies if continues. 3. Cold intolerance - ICD9: 780.99, ICD10: R68.89 - check labs in a few weeks when feeling better. - CBC + DIFF - TSH BLD - BASIC METABOLIC PNL Janell Bassett MD Medical Decision Making: Problems: Moderate: New problem with uncertain prognosis Data: Unique test(s) ordered: 3+ Medical Decision Making Level: 4 - Moderate documented in this encounter [facility] 08-01-2022 History of Present illness Narrative Patient presents for COVID vaccine. Denies any problems at this time. Tolerated injection well. Tracy Kaba LPN documented in this encounter [facility] 07-08-2022 Miscellaneous Notes Mother (Shirin) calls to schedule appointment to establish care with [facility] Christianson. Reviewed message from that Marcial is not accepting new patients at this time but Shirin reports that Maria Fernanda Obregon ([facility]) was in the office yesterday 07/07/2022 and spoke with someone that verified patient could be established. Noted in Maria Fernanda's chart that provider would accept patient. Scheduled for August 05 at 11:20 am. Stephanie Turner RN documented in this encounter [facility] 05-29-2022 Miscellaneous Notes Transition consult order placed This note was partially generated using [employer] voice recognition system, and there may be some incorrect words, spellings, and punctuation that were not noted in checking the note before saving. Rodrigo Rollins MD Could you put in the referral to transition? documented in this encounter [facility] 03-22-2022 Miscellaneous Notes Patient notified and verbalized understanding of instructions given.Debbie Richards LPN ----- Message from Melba Lugo APRN.HAND PATTERN MARKER sent at 03/22/2022 8:15 AM EDT ----- I attempted to reach patient to advise of positive COVID test result. No answer, left message. If patient returns call, May be advised of positive test result and The CDC recommends that people refrain from work and isolate themselves until the following criteria are met: At least 24 hours have passed since last fever without the use of fever-reducing medications Other symptoms have improved At least 5 days have passed since symptoms first appeared documented in this encounter [facility] 03-21-2022 Instructions Rhett Miller APRN.HAND PATTERN MARKER - 03/21/2022 5:54 PM EDT How to Manage Common Symptoms Associated with COVID for Adults Fever- Fever is a temperature over 100.4 F and can occur when the body is fighting an infection. To help treat a fever: Drink plenty of fluids and stay well hydrated. Eat small amounts of easy to digest food. Rest. Your body needs rest to recover, but getting up and moving around the house frequently is a good idea. You should try to continue doing your normal daily activities (bathing, toileting, grooming, cooking), though you will probably feel tired, and need to rest often. Avoid any heavy activity or exercise, as this will increase your body temperature. Dress in light clothing and stay covered in a light sheet. Keep the room temperature cool. Take a slightly warm (not cold or cool) bath, or apply damp washcloths to the forehead and wrists. Cough- Cough is a common symptom associated with COVID and can be bothersome. To help treat a cough: Stay well hydrated. Try warm water or tea with lemon and/or honey to help soothe the cough. Use a humidifier to add moisture to the air. Try a product with menthol, like a cough drop or a rub for your chest such as Vicks, which can help reduce cough. Try cough drops. Avoid smoking and other strong odors or perfumes. Try breathing exercises to keep your lungs open and clear. Take a big deep breath through your nose and hold for 5 seconds before slowly releasing. Repeat frequently, while you are awake. Congestion- Runny nose or nasal congestion can occur with COVID. Treatment can help relieve symptoms: Try OTC nasal saline spray, or nasal saline rinse to relieve mucus congestion. Nasal strips can help keep nasal passages open, to increase airflow. Elevating your head with an extra pillow in bed can help reduce congestion. Using a humidifier can increase moisture in the air, and make breathing easier. Sore Throat- Another common symptom with COVID, can be managed at home by: Stay well hydrated. Gargle with salt water - mix teaspoon salt with 1 cup of warm water and gargle. This helps to loosen mucus in the back of the throat and may reduce discomfort. Try ice chips, popsicles or lozenges to soothe the throat. Nausea/Vomiting/Diarrhea- These are common symptoms, and staying hydrated is most important. If you are nauseous or vomiting, start with small sips of water every 10-15 minutes and increase as tolerated. You can try sucking an ice cube too. If tolerating, you can try pedialyte or Gatorade, or flat sprite or reyna-sherie. Start slowly and increase as you are able to. Instead of meals, try smaller, more frequent snacks. Try eating bland foods like crackers, toast, rice, and applesauce. Avoid spicy, greasy or fried foods and dairy containing foods. Even if you aren't feeling hungry due to lack of smell or taste, it is important to try to take in some food when you are able. After drinking and eating, rest in an upright position for up to two hours as needed to help decrease nauseous feelings. Try closing your eyes, avoid moving and watching TV. Avoid strong odors that can make you feel more nauseated. When to seek emergency medical attention Look for emergency warning signs for COVID-19. If having any of these symptoms, seek emergency medical care immediately: Trouble breathing Persistent pain or pressure in the chest New confusion Inability to wake or stay awake Bluish lips or face *This list is not all possible symptoms. Please call your medical provider for any other symptoms that are severe or concerning to you. documented in this encounter [facility] 03-21-2022 History of Present illness Narrative Subjective HPI Nontoxic-appearing male presents urgent care accompanied by mother. Chief complaint COVID-19 concerns. Patient states woke up this morning sore throat headache. Did go to work this afternoon. Did leave work early due to fatigue body aches chills nasal congestion. When he got home he did take his temperature was 102.2. Did take some Tylenol. That did help. Did take a COVID-19 test that was positive at home. Presents today for evaluation. States COVID-19 test was does not know if this was an accurate test. Denies any productive cough chest pain shortness of breath pleuritic pain hemoptysis nausea vomiting abdominal pain change in bowel or bladder habits. Past medical history prescription medication use and allergies reviewed. Denies history of COVID-19 in the past. Is vaccinated. .Patient presents with: Sore Throat: ST, WATTS, congestion and fever-positive home test-woke up with symptoms PAST MEDICAL HISTORY Diagnosis Date Asthma, exercise induced 02/05/2015 resolved NEGATIVE HISTORY OF 02/13/10 normal color vision PAST SURGICAL HISTORY Procedure Laterality Date CIRCUMCISION ALLERGIES Amoxacillin [Amoxicillin], Penicillin G, Beta Blockers [Beta-Blockers (Beta-Adrenergic Blocking Agts)], Cats, and Seasonal Allergies MEDICATIONS No prescriptions on file. FAMILY HISTORY Problem Relation Age of Onset None Mother Asthma Father Heart Maternal Grandfather Stints Cervical Cancer Other maternal great grandmother Social History Tobacco Use Smoking status: Never Smokeless tobacco: Never Vaping Use Vaping Use: Never used Substance Use Topics Alcohol use: No Drug use: Never BP 138/80 Pulse 109 Temp (!) 38.4 C (101.1 F) (Tympanic) Resp 16 Wt 80.6 kg (177 lb 12.8 oz) SpO2 96% Hr 93 Review of Systems Constitutional: Positive for chills, fever and malaise/fatigue. HENT: Positive for congestion and sore throat. Negative for ear discharge, ear pain and sinus pain. Eyes: Negative for blurred vision, pain, discharge and redness. Respiratory: Negative for cough, hemoptysis, sputum production, shortness of breath, wheezing and stridor. Cardiovascular: Negative for chest pain. Gastrointestinal: Negative for abdominal pain, diarrhea, nausea and vomiting. Musculoskeletal: Positive for myalgias. Skin: Negative for itching and rash. Neurological: Positive for headaches. Negative for dizziness. Objective Physical Exam Constitutional: General: He is not in acute distress. Appearance: He is not diaphoretic. HENT: Head: Normocephalic. Nose: Congestion present. Mouth/Throat: Mouth: Mucous membranes are moist. Pharynx: Oropharynx is clear. No oropharyngeal exudate or posterior oropharyngeal erythema. Eyes: Conjunctiva/sclera: Conjunctivae normal. Pupils: Pupils are equal, round, and reactive to light. Cardiovascular: Rate and Rhythm: Normal rate and regular rhythm. Heart sounds: Normal heart sounds. Pulmonary: Effort: Pulmonary effort is normal. No tachypnea, accessory muscle usage or respiratory distress. Breath sounds: Normal breath sounds. No stridor. No wheezing, rhonchi or rales. Abdominal: Palpations: Abdomen is soft. Tenderness: There is no abdominal tenderness. There is no guarding or rebound. Musculoskeletal: Cervical back: Normal range of motion and neck supple. No rigidity or tenderness. Lymphadenopathy: Cervical: No cervical adenopathy. Skin: General: Skin is warm and dry. Neurological: Mental Status: He is alert and oriented to person, place, and time. ASSESSMENT/PLAN: 1. Suspected COVID-19 virus infection - ICD9: V01.79, ICD10: Z20.822 - 2019 CORONAVIRUS Patient diagnosed with suspected COVID-19. No red flag symptoms. Work note provided. Patient was educated on supportive therapies. Patient will follow up with primary care provider as needed. Patient was instructed to immediately proceed to emergency room for any new, worsening, or symptoms lasting longer than anticipated. The patient's clinical presentation is otherwise unremarkable at this time. Based on exam and clinical finding, the patient is stable for discharge. Plan of care was discussed with patient. Patient verbalizes understanding and agrees to plan of care. This note was generated using [employer] software. It may contain errors in wording, punctuation, or spelling. Rhett Miller APRN.ZAID documented in this encounter [facility] 03-17-2022 History of Present illness Narrative PEDIATRIC SICK VISIT SERVICE DATE: 03/17/2022 TEACHING PROVIDER (Physician/PA/TELEGRAPH INSPECTOR) NOTE OF PERSONAL INVOLVEMENT IN CARE: I have personally seen and examined the patient and performed the medical decision-making components. I have reviewed the Physician Nursing Service Administrator (PA) Student's documentation and verified the findings in the note as written. Signature: Keli Pino PA-C Date: 03/18/2022 Time: 9:08 AM This note was generated by a PA STUDENT working under the supervision of an Attending Physician Nursing Service Administrator. As applicable, the findings, conclusions, and assessment of risk have been confirmed by a qualified provider. The note is NOT considered authenticated until addended and co-signed by the Attending Physician Nursing Service Administrator at the beginning of this note. SUBJECTIVE: Jd Obregon is a 22 year old male accompanied by mother for evaluation of abdominal pain x 3 days. Pain is located above pubic symphysis and described as pressure/bloating. He is having upwards of 5 bowel movements per day fluctuating between Mcdaniel type 3 and 5. Denies melena, hematochezia, and watery stool. Symptoms include: Fever (?100.4F): No or Chills: No Cough: No Shortness of breath: No or Difficulty breathing or wheezing: No Fatigue: No Muscle aches: No Headache: No Sore throat: No Nasal congestion: No or Rhinorrhea: No Abdominal pain: Yes Nausea: No or Vomiting: No Diarrhea: No, loose stool (bristol 5) Rashes: No Decreased appetite: No Signs of dehydration (low fluid intake or voiding, dry mucus membranes): No Decreased level of consciousness: No His usual diet consists of pb&j, turkey sandwiches, pasta, chips, and pizza. History was obtained from: mother and patient Modifying factors attempted: Has not tried anything. Sick contacts: No known sick contacts HISTORY: ACTIVE PROBLEM LIST Other Hammer Toe (Acquired) Constipation Add (Attention Deficit Disorder) Sickle-Cell Trait (Hcc) Hyperhydrosis Disorder Talipes Cavus Environmental Allergies PAST MEDICAL HISTORY Diagnosis Date Asthma, exercise induced 02/05/2015 resolved NEGATIVE HISTORY OF 02/13/10 normal color vision PAST SURGICAL HISTORY Procedure Laterality Date CIRCUMCISION Allergies: ALLERGIES Allergen Reactions Amoxacillin [Amoxic* Rash Developed skin rash while on amoxicillin in 2008. Penicillin skin tests were positive 02/23/12. Penicillin G Rash Penicillin skin tests positive 02/23/2012 Beta Blockers [Beta* Contraindication-Medical Surgical Avoid use of beta blockers as patient is on allergy immunotherapy Cats Itching WATERY EYES Seasonal Allergies Itching Cats Horses Dust mites molds (July through March) trees (July, August and September) grasses (September and October) weeds (December, January and February) ragweed (December, January and February) Medications: No prescriptions on file. REVIEW OF SYSTEMS: All negative except noted above. OBJECTIVE: Pulse 76 Temp 36.7 C (98.1 F) (Temporal) Resp 16 Wt 80.8 kg (178 lb 1.6 oz) General: alert and active in no apparent distress, cooperative, pleasant Eyes: conjunctiva clear Ears: TMs translucent: bilaterally Nose: no erythema or exudate OP: no lesions, no erythema Neck: supple, no adenopathy Lungs: clear to auscultation bilaterally, good air exchange, no retractions CVS: Normal rate, regular rhythm, no murmur Abdomen: soft, nondistended, nontender, no hepatosplenomegaly or masses, bowel sounds normal Skin: No rashes, lesions or skin changes ASSESSMENT/PLAN: Encounter Diagnosis ICD-10-CM 1. Viral gastroenteritis A08.4 - Discussed the findings on history and physical are most consistent with a viral gastroenteritis. - Recommend increased hydration and continued nutrition. - Limit dairy intake for the time being - After feeling back to normal, recommend increasing dietary fiber intake. - Provided high fiber foods handout. - All questions answered. - Follow up for persistent or worsening symptoms, not drinking, decreased urination, or other concerns. ALESSANDRO Decker March 17, 2022 11:24 AM SIGNATURE: Keli Pino PA-C PATIENT NAME: Jd Obregon DATE: March 17, 2022 TIME: 10:42 AM documented in this encounter [facility] 12-20-2021 Instructions Ros García APRN.[facility] - 12/20/2021 7:49 PM EDT Images from the original note were not included. Neck and Upper Back Tension These exercises are designed to stretch the muscles that contribute to neck and upper back pain. For the best results do them every morning and evening. Slowly stretch in a relaxed, sustained way with your attention focused on the area being stretched. Do not bounce up and down or stretch to the point of pain. Go to the point of mild tension. Relax as you hold for 5-20 seconds. Start by sitting in a firm chair in a comfortable position. 1. Allow the head to move forward and to one side until you feel a stretch along the opposite side of the neck. Hold for 10 seconds repeat to other side. 2. Facing forward lean your head sideways towards your shoulder. Hold for 10 seconds, each side. 3. Sitting up straight, look slowly to the right until you feel a stretch. Hold for 10 seconds then repeat to the left. 4. Repeat steps 1-3. 5. Interlace fingers, then straighten arms pushing palms out and forward. Hold 20 seconds, relax, then repeat. 6. Bring interlaced fingers above your head. Hold 10 seconds, relax, repeat two more times. 7. Pull interlaced fingers to right and hold for 15 seconds. Repeat on left side. 8. Hold right elbow with left hand, then gently pull elbows behind the head. Hold 30 seconds, each arm. DO NOT OVERSTRETCH! 9. Gently pull right elbow towards your left shoulder as you look over your right shoulder. Hold 10 seconds and repeat on other side. 10. Interlace fingers behind your head and pull the shoulder blades together. Hold for 10 seconds, relax, repeat two more times. 11. Lean forward in the chair and hold for 45-[address] both hands, shoulder width apart on top of a tall piece of furniture or counter. Let your upper body drop towards the floor as you keep your knees soft, slightly bent. 13. Lean your head sideways towards your left shoulder as your left hand pulls the right arm down and across, behind your back. Hold for 10 seconds and repeat on other side. . documented in this encounter [facility] 12-20-2021 History of Present illness Narrative This note was created using [employer]. Subjective Jd Obregon is a 21 year old male. 21 year old male with PMH sickle cell trait presents for upper left back pain. Acute onset today at 1630 States that he was repeatedly lifting boxes. Endorses shortly after he felt tightness in left upper back Denies known trauma or injury Denies skin rash or lesions Denies sx. Denies bowel or bladder dysfunction Denies history of IV drug usage. The history is provided by the patient. No director merit system was used. Back Pain This is a new problem. The current episode started 3 to 5 hours ago. The problem occurs constantly. The problem has not changed since onset.The pain is associated with lifting heavy objects. The pain is present in the thoracic spine. The quality of the pain is described as cramping and aching. The pain does not radiate. The pain is at a severity of 8/10. The pain is moderate. The symptoms are aggravated by twisting and bending. The pain is the same all the time. Pertinent negatives include no chest pain, no fever, no numbness, no weight loss, no headaches, no abdominal pain, no abdominal swelling, no bowel incontinence, no perianal numbness, no bladder incontinence, no dysuria, no pelvic pain, no leg pain, no paresthesias, no paresis, no tingling and no weakness. He has tried NSAIDs for the symptoms. The treatment provided no relief. PAST MEDICAL HISTORY Diagnosis Date Asthma, exercise induced 02/05/2015 resolved NEGATIVE HISTORY OF 02/13/10 normal color vision PAST SURGICAL HISTORY Procedure Laterality Date CIRCUMCISION ALLERGIES Amoxacillin [Amoxicillin], Penicillin G, Beta Blockers [Beta-Blockers (Beta-Adrenergic Blocking Agts)], Cats, and Seasonal Allergies MEDICATIONS predniSONE (DELTASONE) 10 mg tablet Take 4 tabs daily for 3 days, then 2 tabs daily for 3 days, then 1 tab daily for 3 days with food. cyclobenzaprine (FLEXERIL) 10 mg tablet Take 1 tablet by mouth three times daily as needed for muscle spasm. ketoconazole (NIZORAL) 2 % shampoo Apply 1 application to affected area once daily as needed. hydrocortisone valerate (WESTCORT) 0.2 % cream Apply a thin film 2 times daily. Discontinue when control is achieved. polyethylene glycol 3350 (MIRALAX) 17 gram/dose powder Take by mouth once daily. FAMILY HISTORY Problem Relation Age of Onset None Mother Asthma Father Heart Maternal Grandfather Stints Cervical Cancer Other maternal great grandmother Social History Tobacco Use Smoking status: Never Smoker Smokeless tobacco: Never Used Vaping Use Vaping Use: Never used Substance Use Topics Alcohol use: No Drug use: Never Review of Systems Constitutional: Negative for activity change, appetite change, chills, diaphoresis, fatigue, fever and weight loss. Eyes: Negative for photophobia, pain, discharge, redness and itching. Respiratory: Negative for apnea, cough, choking and chest tightness. Cardiovascular: Negative for chest pain. Gastrointestinal: Negative for abdominal pain and bowel incontinence. Genitourinary: Negative for bladder incontinence, dysuria and pelvic pain. Musculoskeletal: Positive for back pain. Skin: Negative for color change, pallor, rash and wound. Allergic/Immunologic: Negative for environmental allergies, food allergies and immunocompromised state. Neurological: Negative for dizziness, tingling, facial asymmetry, weakness, numbness, headaches and paresthesias. Hematological: Negative for adenopathy. Does not bruise/bleed easily. Psychiatric/Behavioral: Negative for agitation and behavioral problems. Objective BP 130/86 Pulse 72 Temp 36.2 C (97.1 F) Resp 20 Wt 80.2 kg (176 lb 12.8 oz) SpO2 98% Physical Exam Vitals and nursing note reviewed. Constitutional: General: He is not in acute distress. Appearance: Normal appearance. He is not ill-appearing, toxic-appearing or diaphoretic. HENT: Head: Normocephalic and atraumatic. Right Ear: External ear normal. Left Ear: External ear normal. Nose: Nose normal. No congestion or rhinorrhea. Mouth/Throat: Mouth: Mucous membranes are moist. Pharynx: Oropharynx is clear. No oropharyngeal exudate or posterior oropharyngeal erythema. Eyes: General: Right eye: No discharge. Left eye: No discharge. Extraocular Movements: Extraocular movements intact. Conjunctiva/sclera: Conjunctivae normal. Pupils: Pupils are equal, round, and reactive to light. Cardiovascular: Rate and Rhythm: Normal rate and regular rhythm. Pulses: Normal pulses. Heart sounds: Normal heart sounds. No murmur heard. No friction rub. No gallop. Pulmonary: Effort: Pulmonary effort is normal. No respiratory distress. Breath sounds: Normal breath sounds. No stridor. No wheezing, rhonchi or rales. Chest: Chest wall: No tenderness. Abdominal: General: Abdomen is flat. There is no distension. Palpations: Abdomen is soft. There is no mass. Tenderness: There is no abdominal tenderness. There is no guarding or rebound. Hernia: No hernia is present. Musculoskeletal: General: No swelling, tenderness, deformity or signs of injury. Normal range of motion. Cervical back: Normal range of motion and neck supple. No rigidity or tenderness. Right lower leg: No edema. Left lower leg: No edema. Comments: Left upper thoracic with TTP and tightness No midline cervical, thoracic, or lumbar. No skin rash or lesions. Lymphadenopathy: Cervical: No cervical adenopathy. Skin: General: Skin is warm and dry. Capillary Refill: Capillary refill takes less than 2 seconds. Coloration: Skin is not jaundiced or pale. Findings: No bruising, lesion or rash. Neurological: General: No focal deficit present. Mental Status: He is alert and oriented to person, place, and time. Cranial Nerves: No cranial nerve deficit. Sensory: No sensory deficit. Motor: No weakness. Coordination: Coordination normal. Gait: Gait normal. Deep Tendon Reflexes: Reflexes normal. Psychiatric: Mood and Affect: Mood normal. Behavior: Behavior normal. Thought Content: Thought content normal. Assessment and Plan ASSESSMENT/PLAN: 1. Muscle strain of left upper back, initial encounter - ICD9: 847.1, ICD10: S29.012A Acute onset today Left upper thoracic No midline TTP No red flags Supportive measures RX Flexeril RX Prednisone Ros García APRN.HAND PATTERN MARKER documented in this encounter [facility] 04-21-2017 History of Past i llness Narrative Problem Noted Date Resolved Date Chronic seasonal allergic rhinitis due to fungal spores 04/21/2017 02/16/2018 Allergic rhinitis due to dust mite 04/21/2017 02/16/2018 Chronic seasonal allergic rhinitis due to pollen 04/21/2017 02/16/2018 Asthma, exercise induced 02/05/2015 016 Allergic rhinitis 02/23/2012 02/16/2018 Acute atopic conjunctivitis 02/23/201201/23 documented as of this encounter (statuses as of 12/21/2021) [facility] History of Past illness Narrative* Problem Noted Date Resolved Date Chronic seasonal allergic rhinitis due to fungal spores 04/21/2017 02/16/2018 Allergic rhinitis due to dust mite 04/21/2017 02/16/2018 Chronic seasonal allergic rhinitis due to pollen 04/21/2017 02/16/2018 Asthma, exercise induced 02/05/2015 016 Allergic rhinitis 02/23/2012 02/16/2018 Acute atopic conjunctivitis 02/23/201201/23 documented as of this encounter (statuses as of 03/18/2022) [facility] History of Past illness Narrative* Problem Noted Date Resolved Date Chronic seasonal allergic rhinitis due to fungal spores 04/21/2017 02/16/2018 Allergic rhinitis due to dust mite 04/21/2017 02/16/2018 Chronic seasonal allergic rhinitis due to pollen 04/21/2017 02/16/2018 Asthma, exercise induced 02/05/2015 016 Allergic rhinitis 02/23/2012 02/16/2018 Acute atopic conjunctivitis 02/23/201201/23 documented as of this encounter (statuses as of 03/21/2022) [facility] History of Past illness Narrative* Problem Noted Date Resolved Date Chronic seasonal allergic rhinitis due to fungal spores 04/21/2017 02/16/2018 Allergic rhinitis due to dust mite 04/21/2017 02/16/2018 Chronic seasonal allergic rhinitis due to pollen 04/21/2017 02/16/2018 Asthma, exercise induced 02/05/2015 016 Allergic rhinitis 02/23/2012 02/16/2018 Acute atopic conjunctivitis 02/23/201201/23 documented as of this encounter (statuses as of 03/22/2022) [facility] History of Past illness Narrative* Problem Noted Date Resolved Date Chronic seasonal allergic rhinitis due to fungal spores 04/21/2017 02/16/2018 Allergic rhinitis due to dust mite 04/21/2017 02/16/2018 Chronic seasonal allergic rhinitis due to pollen 04/21/2017 02/16/2018 Asthma, exercise induced 02/05/2015 016 Allergic rhinitis 02/23/2012 02/16/2018 Acute atopic conjunctivitis 02/23/201201/23 documented as of this encounter (statuses as of 05/30/2022) [facility] History of Past illness Narrative* Problem Noted Date Resolved Date Chronic seasonal allergic rhinitis due to fungal spores 04/21/2017 02/16/2018 Allergic rhinitis due to dust mite 04/21/2017 02/16/2018 Chronic seasonal allergic rhinitis due to pollen 04/21/2017 02/16/2018 Asthma, exercise induced 02/05/2015 016 Allergic rhinitis 02/23/2012 02/16/2018 Acute atopic conjunctivitis 02/23/201201/23 documented as of this encounter (statuses as of 07/08/2022) [facility]11-28-2017 History of Past illness Narrative* Problem Noted Date Resolved Date Chronic seasonal allergic rhinitis due to fungal spores 04/21/2017 02/16/2018 Allergic rhinitis due to dust mite 04/21/2017 02/16/2018 Chronic seasonal allergic rhinitis due to pollen 04/21/2017 02/16/2018 Asthma, exercise induced 02/05/2015 016 Allergic rhinitis 02/23/2012 02/16/2018 Acute atopic conjunctivitis 02/23/201201/23 documented as of this encounter (statuses as of 08/01/2022) [facility]11-28-2017 History of Past illness Narrative* Problem Noted Date Diagnosed Date Resolved Date Chronic seasonal allergic rh initis due to fungal spores 04/21/2017 02/16/2018 Allergic rhinitis due to dust mite 04/21/2017 02/16/2018 Chronic seasonal allergic rh initis due to pollen 04/21/2017 02/16/2018 Asthma, exercise induced 02/05/201507/2015 Allergic rhinitis 02/23/2012 02/16/2018 Acute atopic conjunctivitis 02/23/2012 02/05/2015 documented as of this encounter (statuses as of 03/07/2023) [facility]11-28-2017 History of Past illness Narrative* Problem Noted Date Diagnosed Date Resolved Date Chronic seasonal allergic rh initis due to fungal spores 04/21/2017 02/16/2018 Allergic rhinitis due to dust mite 04/21/2017 02/16/2018 Chronic seasonal allergic rh initis due to pollen 04/21/2017 02/16/2018 Asthma, exercise induced 02/05/201507/2015 Allergic rhinitis 02/23/2012 02/16/2018 Acute atopic conjunctivitis 02/23/2012 02/05/2015 documented as of this encounter (statuses as of 08/27/2023) [facility] note* Diagnosis Muscle strain of left upper back, initial encounter- Primary documented in this encounter [facility] note* Diagnosis Viral gastroenteritis- Primary Intestinal infection due to other organism, not elsewhere classified documented in this encounter [facility] note* Diagnosis Suspected COVID-19 virus infection- Primary documented in this encounter [facility] note* Diagnosis Physical exam- Primary Unspecified general medical examination documented in this encounter [facility] note* Diagnosis Need for vaccination- Primary Need for prophylactic vaccination and inoculation against unspecified single disease documented in this encounter [facility] note* Diagnosis Pharyngitis, unspecified etiology- Primary Gastroenteritis Other and unspecified noninfectious gastroenteritis and colitis Cold intolerance Other general symptoms documented in this encounter [facility] note* Diagnosis Eczema, unspecified type- Primary Encounter for immunization Need for other specified prophylactic vaccination against single bacterial disease documented in this encounter [facility] Health Concerns Infection Onset Date Last Indicated Resolved Time COVID-19 Rule-Out 03/21/2022 03/21/2022 Infection Onset Date Last Indicated Resolved Time COVID-19 Rule-Out 03/21/2022 03/21/2022 03/22/2022 6:57 AM EDT COVID-19 Confirmed 03/21/2022 03/21/2022 Reason for Referral Specialty Diagnoses / Procedures Referred By Silviano dickens Referred To Contact Diagnoses Physical exam Procedures ESTABLISH WITH PRIMARY CARE NEW PATIENT OFFICE/OUTPATIENT [facility] 60-74 MINUTES Rodrigo Rollins MD [address] [place] [address] Referral ID Status Reason Start Date Expiration Date Visits Requested Visits Authorized [id number] Authorized PCP Requested Referral 05/29/2022 05/29/2023 1 1 Summary Purpose Family History No Family History Records Found Advance Directives No Advanced Directives Records Found Additional Source Comments Source Comments (unrecognize d section and content) In the event this informatio n is protected by the Federal Confidentiality of Alcohol and Drug Abuse Patient Records regulations: The Federal rules restrict any use of the information to criminally investigate or prosecute any alcohol or drug abuse patient.[facility] the event this information is protected by the Federal Confidentiality of Alcohol and Drug Abuse Patient Records regulations: The Federal rules restrict any use of the information to criminally investigate or prosecute any alcohol or drug abuse patient.[facility] the event this information is protected by the Federal Confidentiality of Alcohol and Drug Abuse Patient Records regulations: The Federal rules restrict any use of the information to criminally investigate or prosecute any alcohol or drug abuse patient.[facility] the event this information is protected by the Federal Confidentiality of Alcohol and Drug Abuse Patient Records regulations: The Federal rules restrict any use of the information to criminally investigate or prosecute any alcohol or drug abuse patient.[facility] the event this information is protected by the Federal Confidentiality of Alcohol and Drug Abuse Patient Records regulations: The Federal rules restrict any use of the information to criminally investigate or prosecute any alcohol or drug abuse patient.[facility] the event this information is protected by the Federal Confidentiality of Alcohol and Drug Abuse Patient Records regulations: The Federal rules restrict any use of the information to criminally investigate or prosecute any alcohol or drug abuse patient.[facility] the event this information is protected by the Federal Confidentiality of Alcohol and Drug Abuse Patient Records regulations: The Federal rules restrict any use of the information to criminally investigate or prosecute any alcohol or drug abuse patient.[facility] the event this information is protected by the Federal Confidentiality of Alcohol and Drug Abuse Patient Records regulations: The Federal rules restrict any use of the information to criminally investigate or prosecute any alcohol or drug abuse patient.[facility] the event this information is protected by the Federal Confidentiality of Alcohol and Drug Abuse Patient Records regulations: The Federal rules restrict any use of the information to criminally investigate or prosecute any alcohol or drug abuse patient.[facility] the event this information is protected by the Federal Confidentiality of Alcohol and Drug Abuse Patient Records regulations: The Federal rules restrict any use of the information to criminally investigate or prosecute any alcohol or drug abuse patient.[facility] the event this information is protected by the Federal Confidentiality of Alcohol and Drug Abuse Patient Records regulations: The Federal rules restrict any use of the information to criminally investigate or prosecute any alcohol or drug abuse patient.[facility] Care Teams (unrecognized sec tion and content) B2B Sales Representative Relationship Specialty Start Date End Date Rodrigo Rollins MD [address] [place] [address] PCP - General 02 B2B Sales Representative Relationship Specialty Start Date End Date Rodrigo Rollins MD [address] [place] [address] PCP - General 02 B2B Sales Representative Relationship Specialty Start Date End Date Rodrigo Rollins MD [address] [place] [address] PCP - General 02 B2B Sales Representative Relationship Specialty Start Date End Date Rodrigo Rollins MD [address] [place] [address] PCP - General 02 B2B Sales Representative Relationship Specialty Start Date End Date Rodrigo Rollins MD [address] [place] [address] PCP - General 02 B2B Sales Representative Relationship Specialty Start Date End Date Jessica Patel APRN.HAND PATTERN MARKER [address] [place] [address] PCP - General Internal Medicine 05/30/22 06/02/22 Jose Clancy MD [address] [place] [address] PCP - General Internal Medicine 06/03/22 07/07/22 Jerome Christianson PA-C [address] [place] [address] PCP - General Family Medicine 07/08/22 B2B Sales Representative Relationship Specialty Start Date End Date Jerome Christianson PA-C [address] [place] [address] PCP - General Family Medicine 07/08/22 B2B Sales Representative Relationship Specialty Start Date End Date Janell Bassett MD [address] [place] [address] PCP - General Family Medicine 10/15/22 B2B Sales Representative Relationship Specialty Start Date End Date Janell Bassett MD [address] [facility] [place] [id number] PCP - General Family Medicine 10/15/22 B2B Sales Representative Relationship Specialty Start Date End Date Janell Bassett MD [address] [facility] [place] [address] PCP - General Family Medicine 10/15/22 Reason for Visit (unrecogniz ed section and content) Reason Comments Follow Up Reason Comments Pain, Abdominal Reason Comments Imm/Inj Reason Comments Results Reason Comments Sore Throat ST, WATTS, congestion a nd fever-positive home test-woke up with symptoms Reason Comments ABDOMINAL CRAMPING/DIARRHEA AND REGULAR STOOL onset for a couple of days, loose to normal stools. afebrile. no vomiting, denies any blood in the stool, not black and tarry, sometimes green in color. (unrecognized sect ion and content) No Status Records Found INFORMATION SOURCE (unrecogn ized section and content) DATE CREATED AUTHOR 03/07/2024 [facility] FOR RECORDS PERTAINING TO PATIENTS WHO ARE OR HAVE BEEN ENROLLED IN A CHEMICAL DEPENDENCY/SUBSTANCEABUSE PROGRAM, SOME INFORMATION MAY BE OMITTED. This clinical summary was aggregated from multiple sources. Caution should be exercised in using it in the provision of clinical care. This summary normalizes information from multiple sources, and as a consequence, information in this document may materially change the coding, format and clinical context of patient data. In addition, data may be omitted in some cases. CLINICAL DECISIONS SHOULD BE BASED ON THE PRIMARY CLINICAL RECORDS. [employer] provides no warranty or guarantee of the accuracy or completeness of information in this document.
[2024-03-20 03:21] LABS: Color, Urine Yellow (Yellow); Glucose, Dipstick Normal (Normal); Ketone-Dipstick Negative (Negative); Leukocyte Esterase-Dipstick Negative /ul (Negative); Nitrite-Dipstick Negative (Negative); Occult Blood-Urine Negative /ul (Negative); Protein-Dipstick Negative (Negative); Urine Bilirubin Dipstick Negative (Negative); Urine Clarity Clear (Clear); Urine Urobilinogen Normal (Normal); Urine pH 6.5 (5.0 - 8.0)
--- NOTE | 2024-03-20 03:34 | ED.VIS.GI ---
HPI HPI - GI History of Present Illness Chief Complaint: Abd Pain Informant: patient and parent Narrative Narrative: Here with mother mid abdominal discomfort starting at midnight. He had a bowel movement prior to that. Symptoms can persisted got worse with sharp sensation bending him over. He came here. In the emergency department symptoms resolved. No fevers. No urinary symptoms. No history. No abdominal surgeries. Prior similar symptoms: No PFSH PFSH Home Medications ?Medication ?Instructions ?Recorded ?Last Taken ?Type polyethylene glycol 3350 17 gram 17 g PO DAILY 01/23/16 Unknown History oral powder packet Allergy/AdvReac Type Severity Reaction Status Date / Time Penicillins Allergy Unknown Verified 01/23/16 18:42 Social History Smoking Status: Never smoker ROS ROS ED Constitutional Constitutional ED: Denies chills, fever(s) or sweats Eyes Eyes: Denies change in vision ENT ENT ED: Denies dysphagia or sore throat Cardiovascular Cardiovascular: Denies chest pain, leg edema, palpitations or racing heartbeat Respiratory/Chest Respiratory/Chest: Denies cough, dyspnea or dyspnea on exertion Gastrointestinal Gastrointestinal: Reports abdominal pain; Denies diarrhea, nausea or vomiting Genitourinary Genitourinary ED: Denies dysuria, hematuria or urinary frequency Musculoskeletal Musculoskeletal: Denies back pain, extremity pain or neck pain Integumentary Denies rash or wounds Neurologic Neurologic: Denies headache(s), paresthesias or weakness EXAM Physical Exam Const Vital Signs: 03/20/24 02:10 03/20/24 04:15 Temperature 98.4 F 98.4 F Temperature Source Oral Pulse Rate 85 83 Respiratory Rate 18 18 Blood Pressure 156/83 H 123/89 H Blood Pressure Mean 107 100 Pulse Ox 98 98 Oxygen Delivery Method Room Air Positive well nourished and well developed General Appearance ED: well developed and NAD HEENT Reports moist mucous membranes normocephalic and atraumatic Eyes EOMs intact bilaterally and conjunctivae normal General Eye ED: Yes normal appearance of both eyes Neck no lymphadenopathy and supple General: Negative for tenderness Chest Wall Chest: Negative for tenderness Resp normal respiratory effort and normal air movement Effort and Inspection: symmetric chest movement; Negative for respiratory distress Cardio regular rate, regular rhythm and no murmurs Peripheral Pulses: pulses 2+ throughout GI normal to inspection, nondistended, normoactive bowel sounds and non-tender GI Narrative: Negative Newell's or McBurney's tenderness Palpation: Negative for guarding or rebound tenderness present Back/Spine no CVA tenderness and no thoracic nor lumbar tenderness Extremity normal to inspection General Extremety ED: Negative for edema or tenderness General Extremity: Negative for edema Neuro oriented x3 and no sensory deficits noted Sensorium / Orientation: awake and alert Skin no rashes or lesions noted and no wounds MDM MDM MDM Narrative Medical decision making narrative: Interventions / MDM: Differential diagnosis: Nonspecific abdominal pain Diagnosis considered but do not suspect: No clinical cholecystitis or appendicitis My EKG interpretation: N/A Imaging independently reviewed and interpreted by myself: N/A External documents reviewed: N/A Test considered but not ordered:N/A ED course: Patient abdominal pain that resolved. Nursing protocol due to busy department obtain labs and urine. Will await results and reevaluate. Labs are stable. Abdomen reevaluation remains soft. He is symptom-free. Discussed potential return of symptoms that may progress to specific location return precautions with mother. They agree with plan. All questions were answered. Re-evaluation: stable Disposition discussed with patient/family/significant other: Patient and mother Case discussed with consulting clinician: N/A This note was generated with [employer] (CAP) dictation software. It may contain incorrect words, spelling, and punctuation that were not noted in checking the note before signing. Lab Data Attestation: I reviewed the patient's lab results. Labs: Laboratory Results - last 24 hr 03/20/24 03/20/24 02:33 03:14 WBC 8.0 RBC 5.01 Hgb 14.7 Hct 44.0 MCV 87.8 MCH 29.3 MCHC 33.4 RDW Std Deviation 41.8 RDW Coeff of Cristine 13.0 Plt Count 243 MPV 10.2 Immature Gran % (Auto) 0.900 Neut % (Auto) 63.5 Lymph % (Auto) 24.2 [place] % (Auto) 8.0 Eos % (Auto) 2.7 Baso % (Auto) 0.7 Absolute Neuts (auto) 5.1 Absolute Lymphs (auto) 1.94 Nucleated RBC % 0 Sodium 137 Potassium 3.7 Chloride 106 Carbon Dioxide 28.0 Anion Gap 2 L BUN 12 Creatinine 1.18 Estim Creat Clear Calc 111.39 Est GFR (MDRD) Af Amer 99 Est GFR (MDRD) Non-Af 82 BUN/Creatinine Ratio 10.2 Glucose 98 Calcium 8.6 Total Bilirubin 0.40 AST 18 ALT 17 Alkaline Phosphatase 58 Total Protein 7.6 Albumin 3.8 Globulin 3.8 Albumin/Globulin Ratio 1.0 Urine Color Yellow Urine Clarity Clear Urine pH 6.5 Ur Specific [place] 1.010 Urine Protein Negative Urine Glucose (UA) Normal Urine Ketones Negative Urine Occult Blood Negative Urine Nitrite Negative Urine Bilirubin Negative Urine Urobilinogen Normal Ur Leukocyte Esterase Negative Urine RBC 0 SEEN Urine WBC 0 SEEN Ur Squamous Epith Cells 0 SEEN Urine Bacteria 0 SEEN Urine Mucus 0 SEEN Discharge Plan Triage Chief Complaint: Abd Pain ED Provider: Prince Gordon Dx/Rx/DC Orders Clinical Impression: Abdominal pain Instructions: Abdominal Pain Prescriptions: No Action polyethylene glycol 3350 17 GM powder in packet 17 g PO DAILY Primary Care Provider: Jan Bassett Referrals: Jan Bassett MD [Primary Care Provider] - 1 Week if not improving Activity Restrictions/Additional Instructions: Abdominal pain resolved. Blood work and urine negative. Symptoms worsen progresses right lower quadrant, return to ED for reevaluation otherwise follow-up with your doctor. Print Language: Australian Disposition Disposition: Home, Self Care Discharge Date/Time: 03/20/24 04:17
[2024-03-20 03:40] LABS: AST(SGOT) 18 U/L (15-37); Alanine Aminotransfer ALT/SGPT 17 U/L (16-61); Albumin, Serum 3.8 g/dL (3.2-5.0); Alkaline Phosphatase 58 U/L (45-117); Anion Gap 2 (5-15); BUN 12 mg/dL (7-18); BUN/Creat Ratio 10.2 RATIO (10-20); Calcium,Total 8.6 mg/dL (8.5-10.1); Chloride 106 mmol/L (98-107); Creatinine, Serum 1.18 mg/dL (0.70-1.30); EST Glomerular Filtration Rate 82 mL/min (>60); Est Glom Filt Rate - Afr Amer 99 mL/min (>60); Estimated Creatinine Clearance 111.39 ml/min; Globulin 3.8 g/dL (2.2-4.2); Glucose 98 mg/dL (74-106); Potassium 3.7 mmol/L (3.5-5.1); Protein, Total 7.6 g/dL (6.4-8.2); Sodium Level 137 mmol/L (136-145)
[2024-03-20 04:15] VITALS: BP 123/89; PULSE 83; RESP 18; TEMP 36.9; O2SAT 98
== END 2024-03-20 04:17 | disposition home or self-care (01) ==
PROVIDERS: Emergency Provider Emergency Medicine; PCP Family Medicine; Visit Provider Emergency Medicine
DX: R10.9 Unspecified abdominal pain (principal)
CPT/HCPCS: 80053; 81001; 85025; 99283; A4216

== ENCOUNTER 2024-12-11 17:32 | Emergency (ER) | payer BC, SELFPAY ==
[2024-12-11 17:32] VITALS: BP 174/94; PULSE 80; RESP 16; TEMP 35.7; O2SAT 98; BMI 23.5
--- NOTE | 2024-12-11 17:50 | EKG12_ITS ---
Test Reason : PALP Blood Pressure : */* mmHG Vent. Rate : 69 BPM Atrial Rate : 69 BPM P-R Int : 160 ms QRS Dur : 106 ms QT Int : 376 ms P-R-T Axes : 76 54 36 degrees QTcB Int : 402 ms Normal sinus rhythm Nonspecific T wave abnormality Abnormal ECG Confirmed by Pop Villafuerte ([id number]), mapping editor JAXON CHOU ([id number]) on 12/13/2024 1:10:33 PM Referred By: JR/LU Confirmed By: Pop Villafuerte
--- NOTE | 2024-12-11 17:54 | EX.ED.DYSGE1 ---
HPI History of Present Illness Chief Complaint: Palpitations Detail of Chief Complaint: Tachycardia Informant: patient Narrative Narrative: Patient presents to the emergency room with complaint of tachycardia and feeling dizzy. Patient states that he had just woken up from a nap when his heart started to race. He became sweaty. He had some mild chest discomfort on the left. His mother put a pulse oximeter on him and his heart rate was in the 70s at that point. Symptoms mostly resolved currently. Never had prior episodes. Denies recent travel or surgery. No family history of abnormal heart rhythms. PFSH PFSH Medical History no medical history Home Medications ?Medication ?Instructions ?Recorded ?Last Taken ?Type polyethylene glycol 3350 17 gram 17 g PO DAILY 01/23/16 Unknown History oral powder packet Allergy/AdvReac Type Severity Reaction Status Date / Time Penicillins Allergy Unknown Verified 12/11/24 17:33 Social History Smoking Status: Never smoker ROS ROS ED Review of Systems ROS Unobtainable: other Constitutional Constitutional ED: Reports lethargy; Denies chills, fever(s), sweats or weight loss Eyes Eyes: Denies blurry vision, change in vision or diplopia ENT ENT ED: Denies rhinorrhea or sore throat Cardiovascular Cardiovascular: Reports chest pain and racing heartbeat; Denies orthopnea Respiratory/Chest Respiratory/Chest: Denies cough, dyspnea, dyspnea on exertion, orthopnea or sputum Gastrointestinal Gastrointestinal: Denies abdominal pain, diarrhea, nausea or vomiting Genitourinary Genitourinary ED: Denies dysuria, hematuria or urinary frequency Musculoskeletal Musculoskeletal: Denies arthralgias, back pain, myalgias or neck pain Integumentary Denies abscess, Abrasions or rash Neurologic Neurologic: Denies headache(s) or weakness Psychiatric Psychiatric: Denies anxiety, depression or suicidal thoughts Endocrine Endocrinology: Denies polydipsia, polyphagia or polyuria Hematologic/Lymphatic Hematologic/Lymphatic: Denies easy bleeding, easy bruising or lymphadenopathy Allergic/Immunologic Allergic/Immunologic ED: Denies mouth swelling, tongue swelling or urticaria EXAM Physical Exam Const Vital Signs: 12/11/24 17:32 12/11/24 18:06 Temperature 96.2 F L Temperature Source Temporal Pulse Rate 80 Respiratory Rate 16 Respiratory Effort Normal Non-Labored Blood Pressure 174/94 H Blood Pressure Mean 120 Pulse Ox 98 Oxygen Delivery Method Room Air Positive well nourished and well developed General Appearance ED: well developed and NAD HEENT Reports TM's clear and moist mucous membranes normocephalic and atraumatic; Negative for trauma or tenderness Tympanic Membrane ED: Yes TM's clear Eyes PERRL and EOMs intact bilaterally General Eye ED: Negative for pale conjunctiva or scleral icterus Neck no lymphadenopathy, supple and no JVD General: Negative for tenderness Chest Wall inspection of chest normal and palpation of chest normal Chest: Negative for tenderness Resp normal respiratory effort and clear to auscultation bilaterally Effort and Inspection: Negative for respiratory distress or pain with movement Auscultation: Negative for rhonchi, wheezes or diminished lung sounds Cardio regular rate, regular rhythm, S1 normal heart sound, S2 normal heart sound and no murmurs Peripheral Pulses: pulses 2+ throughout GI normal to inspection, nondistended, normoactive bowel sounds, soft to palpation, non-tender, non-distended and no masses Back/Spine no CVA tenderness and no thoracic nor lumbar tenderness Extremity normal to inspection General Extremety ED: Negative for edema General Extremity: Negative for edema Neuro oriented x3, CN's II-XII intact bilaterally, no sensory deficits noted and gait normal Sensorium / Orientation: awake, alert, oriented to person, oriented to place and oriented to time Motor Exam: strength 5/5 throughout and strength abnormal Psych mental status grossly normal Skin no rashes or lesions noted and no wounds MDM MDM MDM Narrative Medical decision making narrative: Patient presents with complaint of a racing heart that lasted about 6 minutes with diaphoresis. Some mild chest discomfort. By the time his mom checked his pulse with a pulse oximeter was down to 75 and at that point he states that he was still somewhat symptomatic but felt like things it slowed down. He has never had an episode like that before. He denies illicit drug use. He does use creatine to workout. No known family history of abnormal heart rhythms. EKG obtained arrival shows sinus rhythm with rate of 69 bpm with no acute ST segment changes. There is no evidence of delta wave or short CA. CBC with differential count of 9.1 with hemoglobin 14.6 and platelet count of 204. Chemistries were unremarkable. Troponin was normal at 6. Magnesium normal at 1.9. At this point etiology of symptoms unclear. It is possible he may have had an episode of SVT potentially. Initially wanted to send patient home with a Holter monitor however untold are not available. Will refer patient to primary care physician and cardiology for follow-up. Advised to return if repeat episode of racing heart or chest pain or condition should worsen anyway. Lab Data Attestation: I reviewed the patient's lab results. Labs: Laboratory Results - last 24 hr 12/11/24 18:00 WBC 9.1 RBC 4.97 Hgb 14.6 Hct 42.2 MCV 84.9 MCH 29.4 MCHC 34.6 RDW Std Deviation 39.8 RDW Coeff of Cristine 12.9 Plt Count 204 MPV 10.3 Immature Gran % (Auto) 0.200 Neut % (Auto) 77.6 H Lymph % (Auto) 14.6 [place] % (Auto) 5.7 Eos % (Auto) 1.3 Baso % (Auto) 0.6 Absolute Neuts (auto) 7.0 Absolute Lymphs (auto) 1.32 Nucleated RBC % 0 Sodium 139 Potassium 3.6 Chloride 104 Carbon Dioxide 23.5 Anion Gap 12 BUN 13 Creatinine 1.20 Estim Creat Clear Calc 112.26 Est GFR (MDRD) Non-Af 88 BUN/Creatinine Ratio 10.5 Glucose 144 H Calcium 9.1 Magnesium 1.9 Troponin T High Sens 6 EKG Initial EKG: Attestation: I personally reviewed and interpreted this EKG as follows: Comments: Sinus rhythm with ventricular rate of 69 bpm with no acute ST segment changes Discharge Plan Triage Chief Complaint: Palpitations ED Provider: Dante Rivas Dx/Rx/DC Orders Clinical Impression: Tachycardia Instructions: ED About Arrhythmias, ED Tachycardia: PAT Prescriptions: No Action polyethylene glycol 3350 17 GM powder in packet 17 g PO DAILY Primary Care Provider: Jan Bassett Referrals: Orlando Pickard MD [Med Staff - Active Staff] - 3-5 Days Jan Bassett MD [Primary Care Provider] - 3-5 Days Print Language: Mongolian Disposition Disposition: Home, Self Care
[2024-12-11 18:10] LABS: Hematocrit 42.2 % (40-54); Hemoglobin 14.6 g/dL (13.0-16.5); Immature Granulocytes Count 0.020 X10^3/uL (0.0-0.0); Mean Corp Hgb Conc 34.6 g/dL (32-36); Mean Corpuscular Volume 84.9 fL (80-94); Mean Platelet Vol. 10.3 fl (6.2-12.0); NRBC Flagged by Analyzer 0 % (0-5); Platelet Count 204 K/mm3 (150-450); RBC Distribution Width CV 12.9 % (11.6-14.6); RBC Distribution Width SD 39.8 fl (35.1-43.9); Red Blood Count 4.97 M/mm3 (4.6-6.2); White Blood Count 9.1 K/mm3 (4.4-11.0)
--- OUTSIDE RECORDS SUMMARY | 2024-12-11 18:22 | XMS RPT_ITS | CCD ---
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 Ordering Facility: [facility] Address: [address] [place] [address] Performed By: #### 5 7021-8 #### [facility] CLIA [id number] [address] [place] [address] [place] Neutrophils (Bld) [#/Vol] 2.51 10*3/uL Normal 1.45-7.50 [facility] Comment on above: Order Comment: Speci men Type: BLOOD SPECIMEN Ordering Facility: [facility] Address: [address] [place] [address] Performed By: #### 5 7021-8 #### [facility] CLIA [id number] [address] [place] [address] [place] Neutrophils/100 WBC (Bld) 56.5 % Normal [facility] Comment on above: Order Comment: Speci men Type: BLOOD SPECIMEN Ordering Facility: [facility] Address: [address] [place] [address] Performed By: #### 5 7021-8 #### [facility] CLIA [id number] [address] [place] [address] [place] Nucleated RBC (Bld) [#/Vol] 10*3/uL Normal <0.01 [facility] Comment on above: Order Comment: Speci men Type: BLOOD SPECIMEN Ordering Facility: [facility] Address: [address] [place] [address] Performed By: #### 5 7021-8 #### [facility] CLIA [id number] [address] [place] [address] [place] Nucleated RBC/100 WBC (Bld) [Ratio] 0.0 /100 WBC Normal [facility] Comment on above: Order Comment: Speci men Type: BLOOD SPECIMEN Ordering Facility: [facility] Address: [address] [place] [address] Performed By: #### 5 7021-8 #### [facility] CLIA [id number] [address] [place] [address] [place] Platelet mean volume (Bld) [Entitic vol] 10.6 fL Normal 9.0-12.7 [facility] Comment on above: Order Comment: Speci men Type: BLOOD SPECIMEN Ordering Facility: [facility] Address: [address] [place] [address] Performed By: #### 5 7021-8 #### [facility] CLIA [id number] [address] [place] [address] [place] Platelets (Bld) [#/Vol] 276 10*3/uL Normal 150-400 [facility] Comment on above: Order Comment: Speci men Type: BLOOD SPECIMEN Ordering Facility: [facility] Address: [address] [place] [address] Performed By: #### 5 7021-8 #### [facility] CLIA [id number] [address] [place] [address] [place] RBC (Bld) [#/Vol] 5.25 10*6/uL Normal 4.20-6.00 [facility] Comment on above: Order Comment: Speci men Type: BLOOD SPECIMEN Ordering Facility: [facility] Address: [address] [place] [address] Performed By: #### 5 7021-8 #### [facility] CLIA [id number] [address] [place] [address] [place] WBC (Bld) [#/Vol] 4.45 10*3/uL Normal 3.70-11.00 [facility] Comment on above: Order Comment: Speci men Type: BLOOD SPECIMEN Ordering Facility: [facility] Address: [address] [place] [address] Performed By: #### 5 7021-8 #### [facility] CLIA [id number] [address] [place] [address] [place] TSH SerPl-aCncon 09-24-2023 TSH Qn 1.190 m[IU]/L Normal 0.270-4.200 [facility] Comment on above: Order Comment: Speci men Type: BLOOD SPECIMEN Ordering Facility: [facility] Address: [address] [place] [address] Performed By: #### 3 016-3, 48514-2 #### [facility] CLIA [id number] [address] [place] [address] [place] CNOVon 08-26-2023 CNOV Office Visit (FAMPWS ) JD OBREGON I ([id number]) 4 M Date Time Provider Department 08/26/23 1:20 PM [facility] During your visit today, we recorded the following information about you: Temperature Pulse Respiration Blood pressure 98.3 degrees 64/minute 18/minute 122/79 Weight 78.5 kg Janell Bassett MD 08/26/2023 4:55 PM Signed Chief Complaint Patient presents with: Pain, Abdominal HPI Jdrenay Obregon is a 23 year old male [...] tests positive 02/23/2012 Beta Blockers [Beta* Contraindication-Medi [facility] Surgical Avoid use of beta blockers as [...] on am (more content not included)... Normal [facility] STREP A MOLECULAR (POC)on Procedural Control Valid [facility] Strep A (POCT) Negative Negative [facility] Vital Signs Date Time Vital Sign Value Performing Clinician Giulianai danae 01-12-2024 13:41-0400 Body mass index (BMI) [Ratio] 21.92 kg/m2 Ashley Jacobson APRN.CNP Work Phone: [facility] 01-12-2024 13:41-0400 Body weight 76.66 kg Ashley Jacobson APRN.CNP Work Phone: [facility] 01-12-2024 13:41-0400 Diastolic blood pressure 82 mm[Hg] Ashley Jacobson APRN.CNP Work Phone: [facility] 01-12-2024 13:41-0400 Heart rate 69 /min Ashley Jacobson APRN.CNP Work Phone: [facility] 01-12-2024 13:41-0400 Respiratory rate 16 /min Ashley Jacobson ARMORED [employer]SPORT SERVICE MANAGER.STACK ATTENDANT Work Phone: [facility] 01-12-2024 13:41-0400 SaO2% (BldA) [Mass fraction] 98 % Ashley Jacobson ARMORED [employer]SPORT SERVICE MANAGER.STACK ATTENDANT Work Phone: [facility] 01-12-2024 13:41-0400 Systolic blood pressure 126 mm[Hg] Ashley Jacobson ARMORED TRANSPORT SERVICE MANAGER.STACK ATTENDANT Work Phone: [facility] 08-26-2023 13:28-0400 Body temperature 98.29 [degF] Janell Bassett MD Work Phone: [facility] 08-26-2023 13:28-0400 Body weight 78.47 kg Janell Bassett MD Work Phone: [facility] 08-26-2023 13:28-0400 Diastolic blood pressure 79 mm[Hg] Janell Bassett MD Work Phone: [facility] 08-26-2023 13:28-0400 Heart rate 64 /min Janell Bassett MD Work Phone: [facility] 08-26-2023 13:28-0400 Respiratory rate 18 /min Janell Bassett MD Work Phone: [facility] 08-26-2023 13:28-0400 Systolic blood pressure 122 mm[Hg] Janell Bassett MD Work Phone: [facility] 03-21-2022 17:46-0400 Body temperature 101.1 [degF] Rhett Miller ARMORED TRANSPORT SERVICE MANAGER.STACK ATTENDANT Work Phone: [facility] 03-21-2022 17:46-0400 Body weight 80.65 kg Rhett Miller ARMORED TRANSPORT SERVICE MANAGER.STACK ATTENDANT Work Phone: [facility] 03-21-2022 17:46-0400 Diastolic blood pressure 80 mm[Hg] Rhett Miller ARMORED TRANSPORT SERVICE MANAGER.STACK ATTENDANT Work Phone: [facility] 03-21-2022 17:46-0400 Heart rate 109 /min Rhett Miller ARMORED TRANSPORT SERVICE MANAGER.STACK ATTENDANT Work Phone: [facility] 03-21-2022 17:46-0400 Respiratory rate 16 /min Rhett Holderdamion ARMORED TRANSPORT SERVICE MANAGER.STACK ATTENDANT Work Phone: [facility] 03-21-2022 17:46-0400 SaO2% (BldA) [Mass fraction] 96 % Rhett Guraquel ARMORED [employer]SPORT SERVICE MANAGER.STACK ATTENDANT Work Phone: [facility] 03-21-2022 17:46-0400 Systolic blood pressure 138 mm[Hg] Rhett Gallolaurelraquel ARMORED TRANSPORT SERVICE MANAGER.STACK ATTENDANT Work Phone: [facility] 03-17-2022 10:46-0400 Body temperature 98.1 [degF] Keli Pino PA-C Work Phone: [facility] 03-17-2022 10:46-0400 Body weight 80.79 kg Keli Pino PA-C Work Phone: [facility] 03-17-2022 10:46-0400 Heart rate 76 /min Keli Pino PA-C Work Phone: [facility] 03-17-2022 10:46-0400 Respiratory rate 16 /min Keli Pino PA-C Work Phone: [facility] 12-20-2021 19:36-0400 Body temperature 97.11 [degF] Ros García ARMORED TRANSPORT SERVICE MANAGER.STACK ATTENDANT Work Phone: [facility] 12-20-2021 19:36-0400 Body weight 80.2 kg Ros García ARMORED TRANSPORT SERVICE MANAGER.STACK ATTENDANT Work Phone: [facility] 12-20-2021 19:36-0400 Diastolic blood pressure 86 mm[Hg] Ros García ARMORED TRANSPORT SERVICE MANAGER.STACK ATTENDANT Work Phone: [facility] 12-20-2021 19:36-0400 Heart rate 72 /min Ros García ARMORED TRANSPORT SERVICE MANAGER.STACK ATTENDANT Work Phone: [facility] 12-20-2021 19:36-0400 Respiratory rate 20 /min Ros García ARMORED TRANSPORT SERVICE MANAGER.STACK ATTENDANT Work Phone: [facility] 12-20-2021 19:36-0400 SaO2% (BldA) [Mass fraction] 98 % Ros García ARMORED TRANSPORT SERVICE MANAGER.STACK ATTENDANT Work Phone: [facility] 12-20-2021 19:36-0400 Systolic blood pressure 130 mm[Hg] Ros García APRN.STACK ATTENDANT Work Phone: [facility] Encounters Encounter Date Encounter Type Care Provider Facility Start: 03-20-2024 End: 03-20-2024 Emergency department patient visit [facility] Facility:[facility] Start: 03-05-2024 End: 03-05-2024 ambulatory [facility] Facility:[facility] Start: 03-05-2024 End: 03-05-2024 Patient encounter procedure Immunization Clinic Nurse [facility] Work Phone: [facility] Start: 01-12-2024 End: 01-12-2024 Office outpatient visit 15 minutes Ashley Jacobson APRN.STACK ATTENDANT Work Phone: [facility] Comment on above: Eczema, unspecified type (Primary Dx); Encounter for immunization Start: 01-12-2024 End: 01-12-2024 ambulatory [facility] Facility:[facility] Start: 09-24-2023 End: 09-24-2023 ambulatory [facility] Facility:[facility] Start: 08-26-2023 End: 08-26-2023 [facility] Facility:[facility] Start: 08-26-2023 End: 08-26-2023 Patient encounter procedure Janell Bassett MD Work Phone: [facility] Comment on above: Pharyngitis, unspeci fied etiology (Primary Dx); Gastroenteritis; Cold intolerance Start: 03-07-2023 End: 03-07-2023 ambulatory Immunization [facility] Nurse [facility] Work Phone: [facility] Start: 08-01-2022 End: 08-01-2022 Nursing evaluation of patient and report Mi Nurse Work Phone: [facility] Comment on above: Need for vaccination (Primary Dx) Start: 05-30-2022 ambulatory [facility] Provider Pacheco Cerda Comment on above: Establish with [facility] physician. Start: 05-30-2022 E-mail encounter issa m caregiver [facility] Provider ODESSA CASANOVA Start: 05-22-2022 ambulatory Rodrigo herbert MD Work Phone: [facility] Comment on above: Adult Dr Start: 05-22-2022 Physical examination Rodrigo Rlolins MD Work Phone: [facility] Start: 03-22-2022 Telephone encounter Melba Linh David ARMORED TRANSPORT SERVICE MANAGER.STACK ATTENDANT Work Phone: [facility] Comment on above: Results Start: 03-21-2022 End: 03-21-2022 Patient encounter procedure Rhett Miller ARMORED TRANSPORT SERVICE MANAGER.STACK ATTENDANT Work Phone: [facility] Comment on above: Suspected COVID-19 v irus infection (Primary Dx) Start: 03-17-2022 End: 03-17-2022 Patient encounter procedure Keli Pino PA-C Work Phone: [facility] Comment on above: Viral gastroenteriti s (Primary Dx) Start: 12-20-2021 End: 12-20-2021 Patient encounter procedure Ros García ARMORED TRANSPORT SERVICE MANAGER.STACK ATTENDANT Work Phone: [facility] Comment on above: Muscle strain [...] Adult depression scr eening assessment Ros García APRN.STACK ATTENDANT Work Phone: Plan of Treatment Date Care Activity Detail Author Start: 01-11-2034 Urine microalbumin profile DTaP,Tdap,Td Vaccine (8 - Td or Tdap) [facility] Start: 01-11-2025 Anxiety Screening Anxiety Screening [facility] Comment on above: Postponed from 02/13 (Declined at this time) Start: 02-01-2024 Urine microalbumin profile [facility] Start: 01-24-2024 Influenza vaccination Influenza Vacc ine (#1) [facility] Start: 01-12-2024 Depression Screening Depression Scre ening [facility] Comment on above: Postponed from 02/13 (Declined at this time) Start: 08-26-2023 End: 11-25-2023 Basic metabolic 2000 panel - Serum or Plasma BASIC METABOLIC PNL Lab Routine Cold intolerance Expected: 08/26/2023, Expires: 11/25/2023 [facility] Work Phone: Comment on above: Expected: 08/26/2023 , Expires: 11/25/2023 Start: 08-26-2023 End: 11-25-2023 CBC W Auto Differential panel - Blood CBC + DIFF Lab Routine Cold intolerance Expected: 08/26/2023, Expires: 11/25/2023 [facility] Work Phone: Comment on above: Expected: 08/26/2023 , Expires: 11/25/2023 Start: 08-26-2023 End: 11-25-2023 Thyrotropin [Units/volume] in Serum or Plasma TSH BLD Lab Routine Cold intolerance Expected: 08/26/2023, Expires: 11/25/2023 [facility] Work Phone: Comment on above: Expected: 08/26/2023 , Expires: 11/25/2023 Start: 05-25-2023 Behavioral Health Screening Behavioral Health Screening [facility] Start: 01-23-2023 Covid-19 Vaccine () Covid-19 Vaccine () [facility] Start: 05-25-2022 [facility] Start: 03-21-2022 End: 04-04-2022 SARS-CoV-2 (COVID-19) RNA [Presence] in Respiratory specimen by SOHAN with probe detection 2019 CORONAVIRUS Microbiology Routine Suspected COVID-19 virus infection Expected: 03/21/2022, Expires: 04/04/2022 [facility] Work Phone: Comment on above: Expected: 03/21/2022 , Expires: 04/04/2022 Start: 01-23-2022 Influenza vaccination INFLUENZA (#1) [facility] Start: 07-27-2021 COVID-19 VACCINE (4 - Booster for Moderna series) COVID-19 VACCINE (4 - Booster for Moderna series) [facility] Start: 05-25-2021 DEPRESSION ASSESSMENT DEPRESSION ASS [facility] Start: 03-12-2021 Adult depression screening assessment DEPRESSION SCREENING [facility] Start: 02-14-2020 [facility] Start: 02-14-2020 HEPATITIS C SCREENING HEPATITIS C [facility] Start: 02-14-2020 Hepatitis C screening Hepatitis C [facility] Start: 02-14-2020 HIV SCREENING HIV SCREENING [facility] Start: 02-14-2020 HIV screening HIV Screening [facility] Start: 2018 Meningococcal B Vacc ine: Consider Based On Risk (1 of 2 - Patient Seeks Protection) Meningococcal B Vaccine: Consider Based On Risk (1 of 2 - Patient Seeks Protection) [facility] Start: 02-14-2016 PEDS TO ADULT TRANSI TION ANNUAL ASSESSMENT PEDS TO ADULT TRANSITION ANNUAL ASSESSMENT [facility] Start: 2014 PEDS TO ADULT TRANSI TION INITIAL DISCUSSION PEDS TO ADULT TRANSITION INITIAL DISCUSSION [facility] Start: 02-14-2012 MENINGOCOCCAL B: Consider based on risk (1 of 2 - Risk Bexsero 2-dose series) MENINGOCOCCAL B: Consider based on risk (1 of 2 - Risk Bexsero 2-dose series) [facility] Immunizations Immunization Date Immunization Notes Care Provider Adela villafuerte 03-05-2024 COVID-19 vaccine, ag e 12+ yr (PFIZER-BIONTECH COMIRNATY) Immunization [facility] Work Phone: [facility] 03-05-2024 influenza, seasonal, injectable [facility] Work Phone: [facility] 01-12-2024 tetanus toxoid, redu edwina diphtheria toxoid, and acellular pertussis vaccine, adsorbed Ashley Haagen ARMORED TRANSPORT SERVICE MANAGER.STACK ATTENDANT Work Phone: [facility] 03-07-2023 influenza, injectabl e, quadrivalent, contains preservative Immunization [facility] Work Phone: [facility] 03-07-2023 influenza virus vaccine, unspecified formulation Ashley Haagen ARMORED TRANSPORT SERVICE MANAGER.STACK ATTENDANT Work Phone: [facility] 08-01-2022 COVID-19 booster vaccine, age 12+ yr, bivalent ([place]) Mi Nurse Work Phone: [facility] Work Phone: 02-22-2022 influenza, injectabl e, quadrivalent, contains preservative Keli Pino PA-C Work Phone: [facility] 02-23-2021 influenza, injectabl e, quadrivalent, contains preservative Ros García ARMORED TRANSPORT SERVICE MANAGER.STACK ATTENDANT Work Phone: [facility] Work Phone: 03-12-2020 influenza, injectabl e, quadrivalent, contains preservative Ros García ARMORED TRANSPORT SERVICE MANAGER.STACK ATTENDANT Work Phone: [facility] 03-11-2019 influenza, injectabl e, quadrivalent, preservative free Ros García ARMORED TRANSPORT SERVICE MANAGER.STACK ATTENDANT Work Phone: [facility] 02-16-2018 influenza, injectabl e, quadrivalent, contains preservative Ros García ARMORED TRANSPORT SERVICE MANAGER.STACK ATTENDANT Work Phone: [facility] 02-16-2018 meningococcal B, unspecified formulation Immunization [facility] Work Phone: [facility] Work Phone: 02-16-2018 meningococcal polysaccharide (groups A, C, Y and W-135) diphtheria toxoid conjugate vaccine (MCV4P) Ros García ARMORED TRANSPORT SERVICE MANAGER.[facility] Work Phone: [facility] 02-25-2017 influenza, injectabl e, quadrivalent, preservative free Ros García ARMORED TRANSPORT SERVICE MANAGER.STACK ATTENDANT Work Phone: [facility] Work Phone: 02-25-2016 influenza, injectabl e, quadrivalent, preservative free Ros García ARMORED TRANSPORT SERVICE MANAGER.STACK ATTENDANT Work Phone: [facility] Work Phone: 02-24-2015 influenza, injectabl e, quadrivalent, preservative free Ros García ARMORED TRANSPORT SERVICE MANAGER.[facility] Work Phone: [facility] 08-03-2014 human papilloma viru s vaccine, quadrivalent Ros García ARMORED TRANSPORT SERVICE MANAGER.[facility] Work Phone: [facility] 03-31-2014 human papilloma viru s vaccine, quadrivalent Ros García ARMORED TRANSPORT SERVICE MANAGER.[facility] Work Phone: [facility] Work Phone: 03-02-2014 influenza, injectabl e, quadrivalent, preservative free Ros García ARMORED TRANSPORT SERVICE MANAGER.[facility] Work Phone: [facility] Work Phone: 01-31-2014 human papilloma viru s vaccine, quadrivalent Ros García ARMORED TRANSPORT SERVICE MANAGER.[facility] Work Phone: [facility] 01-31-2014 meningococcal B, unspecified formulation Immunization [facility] Work Phone: [facility] Work Phone: 01-31-2014 meningococcal polysaccharide (groups A, C, Y and W-135) diphtheria toxoid conjugate vaccine (MCV4P) Ros García ARMORED TRANSPORT SERVICE MANAGER.STACK ATTENDANT Work Phone: [facility] 01-31-2014 tetanus toxoid, redu edwina diphtheria toxoid, and acellular pertussis vaccine, adsorbed Ros García ARMORED TRANSPORT SERVICE MANAGER.STACK ATTENDANT Work Phone: [facility] 03-05-2013 influenza virus vaccine, live, attenuated, for intranasal use Ros García ARMORED TRANSPORT SERVICE MANAGER.[facility] Work Phone: [facility] Work Phone: 02-21-2012 influenza virus vaccine, live, attenuated, for intranasal use Ros García ARMORED TRANSPORT SERVICE MANAGER.[facility] Work Phone: [facility] Work Phone: 02-25-2011 influenza virus vaccine, live, attenuated, for intranasal use Ros García ARMORED TRANSPORT SERVICE MANAGER.[facility] Work Phone: [facility] 2010 influenza virus vaccine, live, attenuated, for intranasal use Ros García ARMORED TRANSPORT SERVICE MANAGER.[facility] Work Phone: [facility] 02-17-2009 influenza virus vaccine, live, attenuated, for intranasal use Ros García ARMORED TRANSPORT SERVICE MANAGER.[facility] Work Phone: [facility] [facility] Work Phone: 03-04-2008 influenza virus vaccine, live, attenuated, for intranasal use Ros García ARMORED TRANSPORT SERVICE MANAGER.[facility] Work Phone: [facility] Work Phone: 12-29-2007 hepatitis A vaccine, unspecified formulation Ros García ARMORED TRANSPORT SERVICE MANAGER.[facility] Work Phone: [facility] Work Phone: 12-29-2007 varicella virus vaccine Mechelle ica García ARMORED TRANSPORT SERVICE MANAGER.[facility] Work Phone: [facility] Work Phone: 04-07-2007 influenza virus vaccine, live, attenuated, for intranasal use Ros García ARMORED TRANSPORT SERVICE MANAGER.[facility] Work Phone: [facility] Work Phone: 02-15-2007 diphtheria, tetanus toxoids and acellular pertussis vaccine Ros García ARMORED TRANSPORT SERVICE MANAGER.[facility] Work Phone: [facility] Work Phone: 02-15-2007 hepatitis A vaccine, unspecified formulation Ros García ARMORED TRANSPORT SERVICE MANAGER.[facility] Work Phone: [facility] Work Phone: 02-15-2007 measles, mumps and rubella virus vaccine Rosafia García ARMORED TRANSPORT SERVICE MANAGER.[facility] Work Phone: [facility] Work Phone: 02-15-2007 poliovirus vaccine, inactivated Rosafia García ARMORED TRANSPORT SERVICE MANAGER.[facility] Work Phone: [facility] Work Phone: 03-30-2006 influenza virus vaccine, unspecified formulation Rosafia García ARMORED TRANSPORT SERVICE MANAGER.[facility] Work Phone: [facility] Work Phone: 03-13-2005 influenza virus vaccine, unspecified formulation Ros García ARMORED TRANSPORT SERVICE MANAGER.[facility] Work Phone: [facility] Work Phone: 04-23-2004 influenza virus vaccine, unspecified formulation Ros García ARMORED TRANSPORT SERVICE MANAGER.[facility] Work Phone: [facility] Work Phone: 05-12-2003 diphtheria, tetanus toxoids and acellular pertussis vaccine Rosafia García ARMORED TRANSPORT SERVICE MANAGER.[facility] Work Phone: [facility] Work Phone: 05-12-2003 haemophilus influenz ae type b vaccine, HbOC conjugate Rosafia García ARMORED TRANSPORT SERVICE MANAGER.[facility] Work Phone: [facility] Work Phone: 05-12-2003 pneumococcal conjuga te vaccine, 7 valent Ros García ARMORED TRANSPORT SERVICE MANAGER.[facility] Work Phone: [facility] Work Phone: 05-04-2003 influenza virus vaccine, unspecified formulation Rosafia García ARMORED TRANSPORT SERVICE MANAGER.[facility] Work Phone: [facility] Work Phone: 02-17-2003 hepatitis B vaccine, pediatric or pediatric/adolescent dosage Rosafia García ARMORED TRANSPORT SERVICE MANAGER.[facility] Work Phone: [facility] Work Phone: 02-17-2003 measles, mumps and rubella virus vaccine Ros García ARMORED TRANSPORT SERVICE MANAGER.[facility] Work Phone: [facility] Work Phone: 02-17-2003 varicella virus vaccine Mechelle ica García ARMORED TRANSPORT SERVICE MANAGER.[facility] Work Phone: [facility] Work Phone: 2002 diphtheria, tetanus toxoids and acellular pertussis vaccine Ros García ARMORED TRANSPORT SERVICE MANAGER.[facility] Work Phone: [facility] Work Phone: 2002 haemophilus influenz ae type b vaccine, HbOC conjugate Ros García ARMORED TRANSPORT SERVICE MANAGER.[facility] Work Phone: [facility] Work Phone: 2002 pneumococcal conjuga te vaccine, 7 valent Ros García ARMORED TRANSPORT SERVICE MANAGER.[facility] Work Phone: [facility] Work Phone: 2002 poliovirus vaccine, inactivated Ros García ARMORED TRANSPORT SERVICE MANAGER.[facility] Work Phone: [facility] Work Phone: 2002 diphtheria, tetanus toxoids and acellular pertussis vaccine Ros García ARMORED TRANSPORT SERVICE MANAGER.[facility] Work Phone: [facility] Work Phone: 2002 haemophilus influenz ae type b vaccine, HbOC conjugate Ros García ARMORED TRANSPORT SERVICE MANAGER.[facility] Work Phone: [facility] Work Phone: 2002 pneumococcal conjuga te vaccine, 7 valent Ros García ARMORED TRANSPORT SERVICE MANAGER.[facility] Work Phone: [facility] Work Phone: 2002 poliovirus vaccine, inactivated Ros García ARMORED TRANSPORT SERVICE MANAGER.[facility] Work Phone: [facility] Work Phone: 2002 diphtheria, tetanus toxoids and acellular pertussis vaccine Ros García ARMORED TRANSPORT SERVICE MANAGER.[facility] Work Phone: [facility] Work Phone: 2002 haemophilus influenz ae type b vaccine, HbOC conjugate Rosafia García ARMORED TRANSPORT SERVICE MANAGER.STACK ATTENDANT Work Phone: [facility] Work Phone: 2002 pneumococcal conjuga te vaccine, 7 valent Ros García ARMORED TRANSPORT SERVICE MANAGER.STACK ATTENDANT Work Phone: [facility] Work Phone: 2002 poliovirus vaccine, inactivated Rosafia García ARMORED TRANSPORT SERVICE MANAGER.STACK ATTENDANT Work Phone: [facility] Work Phone: 2002 hepatitis B vaccine, pediatric or pediatric/adolescent dosage Ros García ARMORED TRANSPORT SERVICE MANAGER.STACK ATTENDANT Work Phone: [facility] Work Phone: 2002 hepatitis B vaccine, pediatric or pediatric/adolescent dosage Ros García ARMORED TRANSPORT SERVICE MANAGER.STACK ATTENDANT Work Phone: [facility] Work Phone: Payers Date Payer Category Payer Self-pay 2022 Unknown [id number] 2018 Unknown MMO MMO [employer] [id number] 2018-Present [phone] [address] [place] [address] O [id number] 2018 Unknown [id number] Unknown [id number] Social History Date Type Detail Facility Start: 03-17-2022 Tobacco smoking status NHIS Never smoked tobacco [facility] Start: 12-20-2021 End: 01-12-2024 Alcohol intake Current non-drinker of alcohol (finding) [facility] Start: 2002 Sex Assigned At Male [facility] Start: 03-17-2022 Tobacco use and exposure Smokeless tobacco non-user [facility] Work Phone: Start: 03-07-2022 End: 03-21-2022 Exposure to SARS-CoV-2 (event) Not sure [facility] Work Phone: Start: 08-04-2022 End: 02-20-2023 History of Social function [facility] Start: 08-04-2022 End: 02-20-2023 Social connection and isolation panel [facility] Do you belong to any clubs or organizations such as yarsanism groups, unions, fraternal or athletic groups, or school groups? No [facility] Attends Club or Organization Meetings Not on file [facility] Are you now , , , , never or living with a partner? Never [facility] How often to you hav e a drink containing alcohol? Never [facility] (I/We) worried wheamita er (my/our) food would run out before (I/we) got money to buy more. Never true [facility] Start: 01-18-2019 Gender identity Identifies as male gender (finding) [facility] Start: 01-18-2019 Sexual orientation Heterosexual (finding) [facility] Clinical Notes 04-21-2017 to 01-12-2024 Patient InstructionsAshley Jacobson APRN.CNP - 01/12/2024 1:50 PM Janell Blanchard MD - 08/26/2023 1:27 PM Devorah Kaba LPN - 08/01/2022 12:40 PM ESTPatient [...] HIV/hep C screenings. documented in this encounter [facility] 01-12-2024 Note HNO ID: [id number] Author: ASHLEY JACOBSON APRN.STACK ATTENDANT Service: ? Author Type: Nurse Practitioner Type: [...] as needed for worsening/no improvement. Ashley Jacobson APRN.[facility] 01-12-2024 History of Present illness Narrative [...] as needed for worsening/no improvement. Ashley Jacobson APRN.STACK ATTENDANT documented in this encounter [facility] 08-26-2023 Note HNO ID: [id number] Author: JANELL BASSETT MD Service: ? Author [...] Medical Decision Making Level: 4 - Moderate [facility] 08-26-2023 History of Present illness Narrative Chief [...] 4 - Moderate documented in this encounter [facility] 08-01-2022 History of Present illness Narrative Patient presents for COVID vaccine. Denies any problems at this time. Tolerated injection well. Tracy Kaba LPN documented in this encounter [facility] 07-08-2022 Miscellaneous Notes Mother (Shirin) calls to schedule appointment to establish care with [facility]. Reviewed message from that [facility] is not accepting new patients at this time but Shirin reports that Maria Fernanda Obregon (grandma) was in the office yesterday 07/07/2022 and spoke with someone that verified patient could be established. Noted in Maria Fernanda's chart that provider would accept patient. Scheduled for August 05 at 11:20 am. Stephanie Turner RN documented in this encounter [facility] 05-29-2022 Miscellaneous Notes Transition consult order placed This note was partially generated using BetterDoctor voice recognition system, and there may be some incorrect words, spellings, and punctuation that were not noted in checking the note before saving. Rodrigo Rollins MD Could you put in the referral to transition? documented in this encounter [facility] 03-22-2022 Miscellaneous Notes Patient notified and verbalized understanding of instructions given.Debbie Richards LPN ----- Message from Melba Lugo APRN.STACK ATTENDANT sent at 03/22/2022 8:15 AM EDT ----- [...] symptoms first appeared documented in this encounter [facility] 03-21-2022 Instructions Rhett Miller APRN.STACK ATTENDANT - 03/21/2022 5:54 PM EDT How to [...] concerning to you. documented in this encounter [facility] 03-21-2022 History of Present illness Narrative Subjective [...] of care. This note was generated using BetterDoctor software. It may contain errors in wording, punctuation, or spelling. Rhett Miller APRN.STACK ATTENDANT documented in this encounter [facility] 03-17-2022 History of Present illness Narrative PEDIATRIC SICK VISIT SERVICE DATE: 03/17/2022 TEACHING PROVIDER (Physician/PEGGY/COLE) NOTE OF PERSONAL INVOLVEMENT IN CARE: I have personally seen and examined the patient and performed the medical decision-making components. I have reviewed the Physician Computer Network And Systems Engineer (PEGGY) Student's documentation and verified the findings in the note as written. Signature: Keli Pino PA-C Date: 03/18/2022 Time: 9:08 AM This note was generated by a PA STUDENT working under the supervision of an Attending Physician Computer Network And Systems Engineer. As applicable, the findings, conclusions, and assessment of risk have been confirmed by a qualified provider. The note is NOT considered authenticated until addended and co-signed by the Attending Physician Computer Network And Systems Engineer at the beginning of this note. SUBJECTIVE: Jd Obregon is a 22 year old male accompanied by mother for evaluation of abdominal pain x 3 days. Pain is located above pubic symphysis and described as pressure/bloating. He is having upwards of 5 bowel movements per day fluctuating between [place] type 3 and 5. Denies melena, hematochezia, [...] TIME: 10:42 AM documented in this encounter [facility] 12-20-2021 Instructions Ros García APRN.[facility] - 12/20/2021 7:49 PM EDT Images from [...] other side. . documented in this encounter [facility] 12-20-2021 History of Present illness Narrative This note was created using Mimoonariter. Subjective Jd Obregon is a 21 year [...] history is provided by the patient. No sewer pipe offbearer was used. Back Pain This is a [...] measures RX Flexeril RX Prednisone Ros García APRN.ZAID documented in this encounter [facility] 04-21-2017 History of Past i llness Narrative Problem Noted Date Resolved Date Chronic seasonal allergic rhinitis due to fungal spores 04/21/2017 02/16/2018 Allergic rhinitis due to dust mite 04/21/2017 02/16/2018 Chronic seasonal allergic rhinitis due to pollen 04/21/2017 02/16/2018 Asthma, exercise induced 02/05/2015 016 Allergic rhinitis 02/23/2012 02/16/2018 Acute atopic conjunctivitis 02/23/201201/23 documented as of this encounter (statuses as of 12/21/2021) [facility] History of Past illness Narrative* Problem Noted Date Resolved Date Chronic seasonal allergic rhinitis due to fungal spores 04/21/2017 02/16/2018 Allergic rhinitis due to dust mite 04/21/2017 02/16/2018 Chronic seasonal allergic rhinitis due to pollen 04/21/2017 02/16/2018 Asthma, exercise induced 02/05/2015 016 Allergic rhinitis 02/23/2012 02/16/2018 Acute atopic conjunctivitis 02/23/201201/23 documented as of this encounter (statuses as of 03/18/2022) [facility] History of Past illness Narrative* Problem Noted Date Resolved Date Chronic seasonal allergic rhinitis due to fungal spores 04/21/2017 02/16/2018 Allergic rhinitis due to dust mite 04/21/2017 02/16/2018 Chronic seasonal allergic rhinitis due to pollen 04/21/2017 02/16/2018 Asthma, exercise induced 02/05/2015 016 Allergic rhinitis 02/23/2012 02/16/2018 Acute atopic conjunctivitis 02/23/201201/23 documented as of this encounter (statuses as of 03/21/2022) [facility] History of Past illness Narrative* Problem Noted Date Resolved Date Chronic seasonal allergic rhinitis due to fungal spores 04/21/2017 02/16/2018 Allergic rhinitis due to dust mite 04/21/2017 02/16/2018 Chronic seasonal allergic rhinitis due to pollen 04/21/2017 02/16/2018 Asthma, exercise induced 02/05/2015 016 Allergic rhinitis 02/23/2012 02/16/2018 Acute atopic conjunctivitis 02/23/201201/23 documented as of this encounter (statuses as of 03/22/2022) [facility] History of Past illness Narrative* Problem Noted Date Resolved Date Chronic seasonal allergic rhinitis due to fungal spores 04/21/2017 02/16/2018 Allergic rhinitis due to dust mite 04/21/2017 02/16/2018 Chronic seasonal allergic rhinitis due to pollen 04/21/2017 02/16/2018 Asthma, exercise induced 02/05/2015 016 Allergic rhinitis 02/23/2012 02/16/2018 Acute atopic conjunctivitis 02/23/201201/23 documented as of this encounter (statuses as of 05/30/2022) [facility] History of Past illness Narrative* Problem Noted Date Resolved Date Chronic seasonal allergic rhinitis due to fungal spores 04/21/2017 02/16/2018 Allergic rhinitis due to dust mite 04/21/2017 02/16/2018 Chronic seasonal allergic rhinitis due to pollen 04/21/2017 02/16/2018 Asthma, exercise induced 02/05/2015 016 Allergic rhinitis 02/23/2012 02/16/2018 Acute atopic conjunctivitis 02/23/201201/23 documented as of this encounter (statuses as of 07/08/2022) [facility] History of Past illness Narrative* Problem Noted Date Resolved Date Chronic seasonal allergic rhinitis due to fungal spores 04/21/2017 02/16/2018 Allergic rhinitis due to dust mite 04/21/2017 02/16/2018 Chronic seasonal allergic rhinitis due to pollen 04/21/2017 02/16/2018 Asthma, exercise induced 02/05/2015 016 Allergic rhinitis 02/23/2012 02/16/2018 Acute atopic conjunctivitis 02/23/201201/23 documented as of this encounter (statuses as of 08/01/2022) [facility] History of Past illness Narrative* Problem Noted Date Diagnosed Date Resolved Date Chronic seasonal allergic rh initis due to fungal spores 04/21/2017 02/16/2018 Allergic rhinitis due to dust mite 04/21/2017 02/16/2018 Chronic seasonal allergic rh initis due to pollen 04/21/2017 02/16/2018 Asthma, exercise induced 02/05/201507/2015 Allergic rhinitis 02/23/2012 02/16/2018 Acute atopic conjunctivitis 02/23/2012 02/05/2015 documented as of this encounter (statuses as of 03/07/2023) [facility] History of Past illness Narrative* Problem Noted Date Diagnosed Date Resolved Date Chronic seasonal allergic rh initis due to fungal spores 04/21/2017 02/16/2018 Allergic rhinitis due to dust mite 04/21/2017 02/16/2018 Chronic seasonal allergic rh initis due to pollen 04/21/2017 02/16/2018 Asthma, exercise induced 02/05/201507/2015 Allergic rhinitis 02/23/2012 02/16/2018 Acute atopic conjunctivitis 02/23/2012 02/05/2015 documented as of this encounter (statuses as of 08/27/2023) [facility] note* Diagnosis Muscle strain of left upper back, initial encounter- Primary documented in this encounter [facility] note* Diagnosis Viral gastroenteritis- Primary Intestinal infection due to other organism, not elsewhere classified documented in this encounter [facility] note* Diagnosis Suspected COVID-19 virus infection- Primary documented in this encounter [facility] note* Diagnosis Physical exam- Primary Unspecified general medical examination documented in this encounter [facility] note* Diagnosis Need for vaccination- Primary Need for prophylactic vaccination and inoculation against unspecified single disease documented in this encounter [facility] note* Diagnosis Pharyngitis, unspecified etiology- Primary Gastroenteritis Other and unspecified noninfectious gastroenteritis and colitis Cold intolerance Other general symptoms documented in this encounter [facility] note* Diagnosis Eczema, unspecified type- Primary Encounter for immunization Need for other specified prophylactic vaccination against single bacterial disease documented in this encounter [facility] Infection Onset Date Last Indicated Resolved Time COVID-19 Rule-Out 03/21/2022 03/21/2022 Infection Onset Date Last Indicated Resolved Time COVID-19 Rule-Out 03/21/2022 03/21/2022 03/22/2022 6:57 AM EDT COVID-19 Confirmed 03/21/2022 03/21/2022 Reason for Referral Specialty Diagnoses / Procedures Referred By Silviano dickens Referred To Contact Diagnoses Physical exam Procedures ESTABLISH WITH PRIMARY CARE NEW PATIENT OFFICE/OUTPATIENT [employer] 60-74 [employer] Rodrigo Rollins MD [address] [place] [address] Referral ID Status Reason Start Date Expiration Date Visits Requested Visits Authorized [id number] Authorized PCP Requested Referral 05/29/2022 05/29/2023 1 1 Summary Purpose Family History No Family History Records FoundNo Family History Records Found Advance Directives No Advanced Directives Records FoundNo Advanced Directives Records Found Additional Source Comments Source Comments (unrecognize d section and content) In the event this informatio n is protected by the Federal Confidentiality of Alcohol and Drug Abuse Patient Records regulations: The Federal rules restrict any use of the information to criminally investigate or prosecute any alcohol or drug abuse patient.[facility] the event this information is protected by the Federal Confidentiality of Alcohol and Drug Abuse Patient Records regulations: The Federal rules restrict any use of the information to criminally investigate or prosecute any alcohol or drug abuse patient.[facility] the event this information is protected by the Federal Confidentiality of Alcohol and Drug Abuse Patient Records regulations: The Federal rules restrict any use of the information to criminally investigate or prosecute any alcohol or drug abuse patient.[facility] the event this information is protected by the Federal Confidentiality of Alcohol and Drug Abuse Patient Records regulations: The Federal rules restrict any use of the information to criminally investigate or prosecute any alcohol or drug abuse patient.[facility] the event this information is protected by the Federal Confidentiality of Alcohol and Drug Abuse Patient Records regulations: The Federal rules restrict any use of the information to criminally investigate or prosecute any alcohol or drug abuse patient.[facility] the event this information is protected by the Federal Confidentiality of Alcohol and Drug Abuse Patient Records regulations: The Federal rules restrict any use of the information to criminally investigate or prosecute any alcohol or drug abuse patient.[facility] the event this information is protected by the Federal Confidentiality of Alcohol and Drug Abuse Patient Records regulations: The Federal rules restrict any use of the information to criminally investigate or prosecute any alcohol or drug abuse patient.[facility] the event this information is protected by the Federal Confidentiality of Alcohol and Drug Abuse Patient Records regulations: The Federal rules restrict any use of the information to criminally investigate or prosecute any alcohol or drug abuse patient.[facility] the event this information is protected by the Federal Confidentiality of Alcohol and Drug Abuse Patient Records regulations: The Federal rules restrict any use of the information to criminally investigate or prosecute any alcohol or drug abuse patient.[facility] the event this information is protected by the Federal Confidentiality of Alcohol and Drug Abuse Patient Records regulations: The Federal rules restrict any use of the information to criminally investigate or prosecute any alcohol or drug abuse patient.[facility] the event this information is protected by the Federal Confidentiality of Alcohol and Drug Abuse Patient Records regulations: The Federal rules restrict any use of the information to criminally investigate or prosecute any alcohol or drug abuse patient.[facility] Care Teams (unrecognized sec tion and content) Epilepsy Physician Relationship Specialty Start Date End Date Rodrigo Rollins MD [address] [place] [address] PCP - General 02 Epilepsy Physician Relationship Specialty Start Date End Date Rodrigo Rollins MD [facility] [place] [address] PCP - General 02 Epilepsy Physician Relationship Specialty Start Date End Date Rodrigo Rollins MD [facility] [place] [address] PCP - General 02 Epilepsy Physician Relationship Specialty Start Date End Date Rodrigo Rollins MD [address] [place] [address] PCP - General 02 Epilepsy Physician Relationship Specialty Start Date End Date Rodrigo Rollins MD [address] [place] [address] PCP - General 02 Epilepsy Physician Relationship Specialty Start Date End Date Jessica Patel APRN.STACK ATTENDANT [address] [place] [address] PCP - General Internal Medicine 05/30/22 06/02/22 Jose Clancy MD [address] [place] [address] PCP - General Internal Medicine 06/03/22 07/07/22 Jerome Christianson PA-C [address] [place], [place] [address] PCP - General Family Medicine 07/08/22 Epilepsy Physician Relationship Specialty Start Date End Date Jerome Christianson PA-C [address] [place], [place] [id number] PCP - General Family Medicine 07/08/22 Epilepsy Physician Relationship Specialty Start Date End Date Janell Bsasett MD [address] [place], [place] [id number] PCP - General Family Medicine 10/15/22 Epilepsy Physician Relationship Specialty Start Date End Date Janell Bassett MD [address] [place], [place] [address] PCP - General Family Medicine 10/15/22 Epilepsy Physician Relationship Specialty Start Date End Date Janell Bassett MD [address] [place], [place] [id number] PCP - General Family Medicine 10/15/22 Reason [...] sect ion and content) No Status Records FoundNo Status Records Found INFORMATION SOURCE (unrecogn ized section and content) DATE CREATED AUTHOR 03/07/2024 [facility] DATE CREATED AUTHOR AUTHOR'S ORGANIZ ATION 06/05/2024 [facility] FOR RECORDS PERTAINING TO PATIENTS WHO ARE [...] BE BASED ON THE PRIMARY CLINICAL RECORDS. [facility] [employer] [facility]. provides no warranty or guarantee of the accuracy or completeness of information in this document.
[2024-12-11 18:31] LABS: Anion Gap 12 (5-15); BUN 13 mg/dL (4-19); BUN/Creat Ratio 10.5 RATIO (10-20); Calcium,Total 9.1 mg/dL (7.6-11.0); Carbon Dioxide 23.5 mmol/L (21.0-32.0); Chloride 104 mmol/L (98-108); Estimated Creatinine Clearance 112.26 ml/min (50-250); Glucose 144 mg/dL (70-99); Magnesium 1.9 mg/dL (1.5-2.2); Potassium 3.6 mmol/L (3.3-5.1); Troponin T High Sensitivity 6 ng/L (<=22)
[2024-12-11 19:10] VITALS: BP 129/74; PULSE 63; RESP 18; TEMP 36.6; O2SAT 98
== END 2024-12-11 19:14 | disposition home or self-care (01) ==
PROVIDERS: Emergency Provider Emergency Medicine; PCP Family Medicine; Visit Provider Emergency Medicine
DX: R00.0 Tachycardia, unspecified (principal); R00.2 Palpitations
CPT/HCPCS: 80048; 83735; 84484; 85025; 93005; 99284; A4216